=== PATIENT | male | born 1960 | race Caucasian/White ===

== ENCOUNTER 2021-07-04 13:56 | Outpatient (CLI) | payer BC, SELFPAY ==
--- NOTE | 2021-07-04 14:00 | ECG_ITS ---
Measurements Intervals Solo Rate: 66 P: 41 IN: 188 QRS: -22 QRSD: 91 T: 0 QT: 376 QTc: 394 Interpretive Statements SINUS RHYTHM LOW QRS VOLTAGE IN PRECORDIAL LEADS BORDERLINE T WAVE ABNORMALITY- INFERIOR LEADS BASELINE ARTIFACT- I, II, III, AVR, AVL, AVF BORDERLINE ECG Electronically Signed On 07-04-2021 14:18:32 DIVERSITY SPECIALIST by Ivan Christensen D.O.
[2021-07-04 14:34] LABS: Anion Gap 4 mmol/L (8-16); Blood Urea Nitrogen 23 mg/dL (9-20); Calcium 9.1 mg/dL (8.4-10.2); Carbon Dioxide 30 mmol/L (22-30); Chloride 104 mmol/L (98-107); Estimated Glomerular Filt Rate 45; Glucose 90 mg/dL (65-110); Potassium 4.3 mmol/L (3.4-5.0); Sodium 138 mmol/L (137-145)
[2021-07-04 14:36] LABS: Add Urine Microscopic? YES; Appearance Urine Clear (Clear); Bilirubin Urine Negative (Negative); Blood Urine 3+ (Negative); Color Urine Yellow (Yellow); Glucose Urine UA Negative (Negative); Ketones Urine Negative (Negative); Leukocyte Esterase Ur Negative LEU/UL (Negative); Mucus Urine Rare /lpf; Nitrate Urine Negative (Negative); Protein Urine Negative (Negative); RBC Urine 51-75 /hpf (0-2); Specific Grav Ur 1.017 (1.001-1.035); Urobilinogen Urine Negative mg/dL (<2.0); WBC Urine 0-3 /hpf
[2021-07-04 14:36] LABS: Prothrombin Time 13.3 Seconds (11.1-14.7)
[2021-07-04 14:37] LABS: Partial Thromboplastin Time 27.6 SECONDS (22.3-36.8)
== END 2021-07-04 13:57 | disposition home or self-care (01) ==
LOC: ANHSURGERY 13:59
PROVIDERS: Anesthesiology; PCP Internal Medicine; Visit Provider Urology
DX: E78.00 Pure hypercholesterolemia, unspecified (principal); N20.1 Calculus of ureter; Z51.81 Encounter for therapeutic drug level monitoring; Z01.818 Encounter for other preprocedural examination; R94.31 Abnormal electrocardiogram [ECG] [EKG]
CPT/HCPCS: 36415; 80048; 81001; 85610; 85730; 93005

== ENCOUNTER 2021-07-05 01:24 | Day surgery (SDC) | payer BC, SELFPAY ==
[2021-07-04 09:22] VITALS: BMI 35.9
--- NOTE | 2021-07-04 10:38 | PC.NURSE ---
Report to the Outpatient Waiting Room, entrance under the green pavilion located off [facility], at time _1:00 PM on date __07/05/21 . OR Time: __3:00PM . - You and your visitor will be asked a series of questions to screen for COVID 19 for your protection. - A mask is required within the hospital. - Only one visitor is allowed at this time. Patient visitors will be guided where to wait when not with patient. Preoperative COVID Testing Requirements: No COVID Test needed if: (proof is required; if not received patient will have Rapid Test prior to entry) - Patient has received COVID Vaccine at least 14 days prior to procedure date or - Patient has positive COVID test result within last 90 days of surgery date. COVID Test needed if above criteria is not met If not COVID vaccinated a COVID test must be conducted within 72 hours of surgery and patient is asked to isolate self from time of testing until procedure. You will go to the [facility] for your COVID testing. The [facility] is located at the corner of [address] [facility]. You will only be called if COVID results are positive and your surgeon may reschedule your elective surgery date. Patients may have clear liquids (water, carbonated beverages, clear teas, apple juice) until 3 hours prior to surgery with a maximum of 20 ounces. - No food from midnight until time of surgery - Infants may have breast milk until 4 hours before surgery, infant formula 6 hours prior to surgery. - Children will be allowed to drink immediately following surgery. If applicable, please bring a bottle or sippy cup to assist with drinking. Juice, water, soda, and popsicles are readily available. For infants on formula, please bring formula the day of surgery. Pacifiers are allowed. Take the following medications with a SIP of water the morning of surgery: ____LEVOTHYROXINE, HYDROCODONE NEEDED Medications to discontinue per physician HOLD ALL VITAMINS/SUPPLEMENTS STARTING NOW Date to take last dose__07/04/21 Please no make-up, nail brazilian, hairspray, perfume, deodorant, or body powder the day of surgery. No jewelry (including any body piercings) or valuables the day of surgery, leave them at home. Please take a shower or bath the night before, or the morning of, surgery with an antibacterial soap. Wear comfortable, loose fitting clothing. Children are encouraged to wear pajamas. - Jewelry must be removed prior to entering the operating room. Rings and piercings that are not removed may be cut off. - The hospital will not accept responsibility for valuables. - Please leave all valuables, including medications, at home the day of surgery. If you are going home after surgery, a licensed local hazmat driver must drive you home. - NO public transportation without another adult. - We recommend that an adult stay with you for 24 hours following discharge. - We also recommend that you do not drive, make important decision, drink alcoholic beverages, or take any drugs that were not prescribed by your health care provider for at least 24 hours after your discharge time. For Pediatric surgeries, we recommend two adults accompany the child home (only one inside the building at this time). Follow any additional instructions given to you from your surgeon. Telephone instructions given to ___PATIENT and asked if any additional questions and then verbalized understanding. Patient advised to call surgeon office or pre surgery nurse liaison [phone] if any additional questions.
[2021-07-05] VITALS (7 sets, daily range): BP systolic 99–145; BP diastolic 65–79; PULSE 52–73; RESP 13–18; TEMP 36.1–36.6; O2SAT 97–100
--- NOTE | ~2021-07-05 | XR_ITS ---
EXAMINATION: XR abdomen/kub 1V EXAM DATE: 07/05/2021 08:46 INDICATION: Right ureteral stone. TECHNIQUE: Frontal projection of the upper abdomen, frontal projection lower abdomen/pelvis for inter pretation. Correlation is made to abdomen pelvis CT same day. FINDINGS: Right proximal ureteral 4 mm stone projects along the right L4 transverse process, has bee n indicated. The smaller nephrolithiasis is poorly visualized bilaterally. There is moderate amount o f colonic stool and gas. No small bowel obstruction. Mild to moderate bony degenerative changes. IMPRESSION: 1. Right proximal ureteral stone identified. Reviewed, dictated and finalized at location D. PLES MACHINE OPERATOR
--- NOTE | ~2021-07-05 | CT_ITS ---
EXAMINATION: CT abdomen pelvis wo con EXAM DATE: 07/05/2021 09:03 INDICATION: Right ureteral stone . TECHNIQUE: Spiral CT of the abdomen and pelvis was performed without contrast. Axial, coronal and sag ittal images were reviewed. The dose-length product (DLP) for this examination was 1402.24 mGy-cm. The exposure was tailored according to patient size (auto mA exposure control), and iterative reconst ruction (ASIR) was used as additional dose reduction technique. There is no prior study for comparis on. FINDINGS: Mild prostatomegaly. Some diffuse bladder wall thickening, could indicate chronic cystitis . Acute cystitis not excludable. Several liver and renal cysts. Spleen, pancreas and adrenal glands are unremarkable. There is a 4 mm stone in the proximal aspect of the right ureter with mild right-sided hydronephrosis . This is at the right L4 transverse process level for KUB correlation, likely identified, indicated on that exam. There is additional punctate right mid calyceal stone. There are 3 left calyceal stones measuring up to 2.5 mm in size. No left ureteral stones. Gallbladder is unremarkable. No biliary o bstruction. There is no retroperitoneal or pelvic lymphadenopathy. There is mild scattered arterio sclerotic disease. There is mesh, hernia repair deep to the umbilicus. The appendix is normal. There is mild sigmoid predominant colonic diverticulosis. There is no adjace nt inflammatory change to suggest diverticulitis. The stomach and small bowel are unremarkable. Ther e is expected amount of colonic stool. No free intraperitoneal gas. The heart is normal in size. There are no pericardial or pleural effusions. The lung bases are unremarkable. There are no osteo blastic or osteolytic lesions identified. IMPRESSION: 1. Right proximal ureteral 4 mm stone, mild hydronephrosis. KUB positive. 2. Bilateral nephrolithiasis. 3. Mild colonic diverticulosis. Reviewed, dictated and finalized at location D. WORKER
--- NOTE | 2021-07-05 06:47 | WPDHPUPDATE1 ---
History and Physical Update Update Date/Time: 07/05/21 06:47 History and Physical has been reviewed, including an updated exam of the patient. There are NO changes in the patient's condition. Risks, benefits, and alternatives have been discussed and questions answered. Patient agrees to proceed with procedure.
--- NOTE | 2021-07-05 09:15 | SUR.PREOP ---
[address] scan for ct of abdomen,dr leggett states okay to proceed with procedure
[2021-07-05] MEDS: LACTATED RINGERS 1,000 ML 30 ML IV CONT (09:26)
--- NOTE | 2021-07-05 09:30 | WPDANESEPP ---
Anes - Eval Pre Procedure Procedure: Operation Date: 07/05/21 15:00 Proposed Procedures p Right Ureteral Extracorporeal Shock Wave Lithotripsy - Gato Da Silva MD Date/Time: 07/05/21 09:30 Pre Op Diagnosis: right ureteral stone Patient Data Age: 60 Gender: M Height: 1.83 m Weight: 120 kg Allergies Allergy/AdvReac Type Severity Reaction Status Date / Time thiopental AdvReac Mild Vomiting Verified 07/05/21 09:17 Home Medications Medication Instructions Recorded Confirmed Type atorvastatin 20 mg PO HS 07/04/21 07/05/21 History cholecalciferol (vitamin D3) 25 mcg PO DAILY 07/04/21 07/05/21 History docusate sodium [Stool Softener] 100 mg PO DAILY PRN 07/04/21 07/05/21 History ergocalciferol (vitamin D2) 1,250 mcg PO WEEKLY 07/04/21 07/05/21 History finasteride 5 mg PO QAM 07/04/21 07/05/21 History furosemide 20 mg PO QAM PRN 07/04/21 07/05/21 History hydrocodone-acetaminophen 1 tablet PO Q4-6H PRN 07/04/21 07/05/21 History levothyroxine 250 mcg PO QAM 07/04/21 07/05/21 History omega 8-[id number]-jnw-fish oil [Fish Oil] 1 cap PO DAILY 07/04/21 07/05/21 History tamsulosin 0.4 mg PO DAILY 07/04/21 07/05/21 History Patient hx anesthesia problems: none Family hx anesthesia problems: none Results Review: All pre-operative results and documents have been reviewed as part of the pre-operative evaluation. [facility] Past Medical History Medical History (Updated 07/05/21 @ 09:31 by Tara Jesus CRNA) BPH (benign prostatic hyperplasia) Chronic back pain CML (chronic myelocytic leukemia) GERD (gastroesophageal reflux disease) Hyperlipidemia Hypothyroid TERESA (obstructive sleep apnea) Family History Family History (Updated 04/26/15 @ 12:53 by DOCTOR UNKNOWN) Other Diabetes mellitus Family history of malignant neoplasm Social History Social History Smoking packs per day: 1.5 Smoking cigarettes per day: 30.0 Years smoked: 6 Smoking pack-years: 9.00 Smoking status: Former smoker Tobacco type: cigarettes Smoking end date: 07/20/92 Alcohol intake: current Substance use: never Living arrangements: with family Additional living arrangements comments: SPOUSE Spiritual care concerns: No Exam Day of Procedure 07/05/21 09:30
--- NOTE | 2021-07-05 09:32 | WPDANESEFPP ---
Anes - Eval Final PreProcedure Day of Procedure 07/05/21 09:32 Patient weight: obese Heart: regular rate and rhythm Lungs: clear to auscultation Airway: Mallampati scale class III Neurological: alert and oriented Last oral intake: >/= 8 hours ASA classification: III Emergent: no Anesthetic plan: proceed Anesthesia type and monitoring: general LMA and standard monitoring Results Review: All pre-operative results and documents have been reviewed as part of the pre-operative evaluation. Informed Consent: The patient's anesthetic plan and its attendant risks and benefits were discussed with the patient/family/POA. Questions were solicited and answers provided to the satisfaction of the patient/family/POA.
[2021-07-05] MEDS: ceFAZolin SODIUM 1 GM VIAL IV PUSH (09:40)
[2021-07-05] MEDS: ceFAZolin 2 GM/D5W 50 ML 2 GM/50 ML BAG IVPB (09:40)
[2021-07-05] MEDS: KETOROLAC 30 MG/ML VIAL (*BKC) IV PUSH (09:52)
--- NOTE | 2021-07-05 09:58 | W.PM.PROC2 ---
Procedure Note - Detailed Date of Procedure 07/05/21 Pre-op Diagnosis Right ureteral stone Post-op Diagnosis same Procedure Performed Right ESWL Surgeon Gato Da Silva MD Anesthesia general Description of Procedure The patient was brought to the operative suite where he was placed in the supine position on the Dornier lithotripsy table. The focal point of the lithotripter was placed at a 5mm right mid-ureteral calculus. A total of 3000 shocks were delivered at a power setting of 6. There appeared to be good fragmentation of the stone. The patient tolerated the procedure well and was taken to the recovery room in good condition. Estimated Blood Loss 0 Drains No Packing No Pathology none sent Complications No immediate complications Condition stable Disposition PACU
== END 2021-07-05 12:13 | disposition home or self-care (01) ==
PROVIDERS: PCP Internal Medicine; Visit Provider Urology
PROC: (CPT 50590; principal; 2021-07-05 15:00)
DX: N20.1 Calculus of ureter (principal); E78.5 Hyperlipidemia, unspecified; E03.9 Hypothyroidism, unspecified; N40.0 Benign prostatic hyperplasia without lower urinary tract symptoms; C92.10 Chronic myeloid leukemia, BCR/ABL-positive, not having achieved remission; G47.33 Obstructive sleep apnea (adult) (pediatric); K21.9 Gastro-esophageal reflux disease without esophagitis; M54.9 Dorsalgia, unspecified; G89.29 Other chronic pain; Z79.891 Long term (current) use of opiate analgesic; Z87.891 Personal history of nicotine dependence; E66.9 Obesity, unspecified; Z68.35 Body mass index [BMI] 35.0-35.9, adult
CPT/HCPCS: 50590; 36415; 74018; 74176; 80048; 81001; 85610; 85730; 93005; J0690; J1100; J1885; J2250; J2405; J2704; J3010; J7120

== ENCOUNTER 2021-07-15 14:56 | Outpatient (CLI) | payer BC, SELFPAY ==
--- NOTE | ~2021-07-15 | XR_ITS ---
XR abdomen/kub 1V DATE: 07/15/2021 15:08 INDICATION: Right ureteral calculus TECHNIQUE: AP projection, 2 views COMPARISON: 07/05/[address] abdomen pelvis FINDINGS: Very small calcified calculus of the lower pole left kidney is noted. There are couple of a dditional small left renal calculi and one right renal calculus detected on 07/05/[address] abdomen pelvis examination. No obvious calcified ureteral calculus is noted. Noncontrast CT abdomen pelvis examination would be m ore sensitive for detection of urinary tract stones. The psoas shadows are intact. No visceromegaly is evident. The bowel gas pattern is unremarkable, wit hout evidence of obstruction. Included skeletal structures are unremarkable. IMPRESSION: Bilateral nephrolithiasis Reviewed, dictated and finalized at Location A. Reviewed, dictated and finalized at location A. K REPAIR SUPERVISOR IMPRESSION: Bilateral nephrolithiasis
== END 2021-07-15 14:57 | disposition home or self-care (01) ==
LOC: ANHIMG 15:00
PROVIDERS: PCP Internal Medicine; Visit Provider Urology
DX: N20.0 Calculus of kidney (principal)
CPT/HCPCS: 74018

== ENCOUNTER 2022-09-05 12:19 | Emergency (ER) | payer BC, SELFPAY ==
[2022-09-05 12:31] VITALS: BP 162/74; PULSE 102; RESP 18; TEMP 36.8; O2SAT 98
--- NOTE | 2022-09-05 12:37 | ED.BACK ---
HPI - Back Pain/Injury General Chief Complaint: Back Pain/Injury Stated Complaint: back pain, Time Seen by Provider: 09/05/22 12:37 Source: patient, family, RN notes reviewed and old records reviewed Mode of arrival: ambulatory Limitations: no limitations History of Present Illness HPI Narrative: 61-year-old male presents to the [facility] with complaints of lower back pain. Has history of lower back pain, has been seen by primary. patient reports that he has a history of chronic back pain an attic occasionally acts up. Patient denies any loss retention or bladder bladder. denies midline tenderness. Denies any injury. Denies any saddle anesthesia walks with a normal gait. MD elicited complaint: back pain Onset (ago): day(s) () Related Data Home Medications Medication Instructions Recorded Confirmed finasteride 5 mg tablet 5 mg PO QAM 07/04/21 09/05/22 levothyroxine 125 mcg tablet 250 mcg PO QAM 07/04/21 09/05/22 dasatinib 50 mg tablet (Sprycel) 50 mg PO DAILY 07/18/22 09/05/22 Allergies Allergy/AdvReac Type Severity Reaction Status Date / Time thiopental AdvReac Mild Vomiting Verified 09/05/22 12:33 Review of Systems Review of Systems: All systems reviewed & are unremarkable except as noted in HPI and below Constitutional: Constitutional: Reports no additional constitutional complaints and Denies weakness Eyes: Eyes: Reports no additional eye complaints ENT: Reports system reviewed and no additional complaints, except as documented Cardiovascular: Cardiovascular: Reports no additional cardiovascular complaints and Denies chest pain Respiratory: Respiratory: Reports no additional respiratory complaints Gastrointestinal: Gastrointestinal: Reports no additional gastrointestinal complaints and Denies abdominal pain Genitourinary: Genitourinary: Reports no additional male genitourinary complaints, Denies urinary incontinence and Denies urinary urgency Musculoskeletal: Musculoskeletal: Reports as per HPI, Reports back pain and Denies numbness Integumentary/Breasts: Skin/Breast: Reports system reviewed and no additional complaints, except as docu Neurologic: Reports system reviewed and no additional complaints, except as documented, Denies focal weakness, Denies numbness and Denies weakness Psychiatric: Psychiatric: Reports no additional psychiatric complaints Allergic/Immunologic: Allergic/Immunologic: Reports no additional allergic/immunologic complaints PMFSH Past Medical History Medical History BPH (benign prostatic hyperplasia) Chronic back pain CML (chronic myelocytic leukemia) GERD (gastroesophageal reflux disease) Hyperlipidemia Hypothyroid TERESA (obstructive sleep apnea) Family History Family History Other Diabetes mellitus Family history of malignant neoplasm Social History Social History Smoking packs per day: 1.5 Smoking cigarettes per day: 30.0 Years smoked: 6 Smoking pack-years: 9.00 Smoking status: Former smoker Tobacco type: cigarettes Smoking end date: 07/20/92 Alcohol intake: current Substance use: never Substance use type: does not use Lack of Transportation: No Lack of Food: Never True Current Housing: I Have Housing Concerned About Future Housing: No Difficulty Paying Gas/Electric Bills: No Difficulty Paying for Meds: No Currently Unemployed: No Education: Bachelor's Degree Difficulty w/ Childcare or Family Care: No Living arrangements: with family Additional living arrangements comments: SPOUSE Occupation/Education: occupation Gender identity (if verbalized by the patient): Male Sexual Orientation (if Verbalized by the Patient): Straight or Heterosexual Spiritual care concerns: No Comments At the time of my signature, I reviewed and agree with the
[2022-09-05] MEDS: KETOROLAC (*BKC) 60 MG/2 ML VIAL IM (12:57)
== END 2022-09-05 13:14 | disposition home or self-care (01) ==
PROVIDERS: Emergency Provider Nurse Practitioner; PCP Internal Medicine
DX: M54.50 Low back pain, unspecified (principal); Z87.891 Personal history of nicotine dependence; N40.0 Benign prostatic hyperplasia without lower urinary tract symptoms; K21.9 Gastro-esophageal reflux disease without esophagitis; E78.5 Hyperlipidemia, unspecified; E03.9 Hypothyroidism, unspecified; C93.11 Chronic myelomonocytic leukemia, in remission
CPT/HCPCS: 96372; 99213; G0463; J1885

== ENCOUNTER → 2023-05-27 12:42 | Outpatient (CLI) | payer BC, SELFPAY ==
--- NOTE | ~2023-05-27 | MR_ITS ---
MRI of the right knee Clinical history: Pain Technique: Coronal proton density and proton density-weighted images, sagittal proton-density and T2 fat-sat images, and axial proton-density fat-saturated images were acquired. Findings: Anterior and posterior cruciate ligaments are intact. Medial collateral ligament and the la teral collateral ligament complex are intact. Popliteus tendon is intact. There are probable peripheral corner tear of the posterior horn of the medial meniscus. No lateral me niscal tear evident. There is extensive high-grade chondromalacia of the medial compartment. Lateral compartment articular cartilage is well preserved. There is focal high-grade chondral malacia at the superior patellar ape x. Femoral trochlear cartilage is well preserved. Small tricompartmental osteophytes are present. Extensor mechanism is intact. There is small joint effusion. No Pardo's cyst. Impression: Probable peripheral corner tear of the posterior horn of the medial meniscus. 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 Moderate degenerative change of the medial compartment. Mild degenerative change of the lateral and p atellofemoral compartment. Reviewed, dictated and finalized at location M. ER TAR Impression: Probable peripheral corner tear of the posterior horn of the medial meniscus. 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 Moderate degenerative change of the medial compartment. Mild degenerative guzmán e of the lateral and patellofemoral compartment.
== END ==
PROVIDERS: PCP Physician Assistant Medical; Visit Provider Physician Assistant Medical
DX: M94.261 Chondromalacia, right knee (principal); M17.11 Unilateral primary osteoarthritis, right knee
CPT/HCPCS: 73721

== ENCOUNTER 2024-01-23 10:19 | Emergency (ER) | payer BC, SELFPAY ==
--- NOTE | 2024-01-23 10:26 | ED.BACK ---
HPI - Back Pain/Injury General Chief Complaint: Back Pain/Injury Stated Complaint: back spasms Source: patient Mode of arrival: ambulatory Limitations: no limitations History of Present Illness HPI Narrative: 63-year-old male with chronic back pain presented for complaint of right lower back spasms for about 1 week. He states he may have overused it by working in the yard. Pain is 3/10 at rest, 6/10 with walking or movements. Reports occasional acute flares of back pain for which he gets toradol, Medrol pack and continues robaxin. Denies pain radiating into the hips or legs, increase in numbness, tingling, weakness of the lower extremities, or change in gait, saddle paresthesia or loss of bowel or bladder. Hx L4-5 laminectomy 1987 and reports chronic residual numbness to legs. Taking Robaxin and Aleve for symptoms. Related Data Home Medications Medication Instructions Recorded Confirmed finasteride 5 mg tablet 5 mg PO QAM 07/04/21 01/23/24 levothyroxine 125 mcg tablet 250 mcg PO QAM 07/04/21 01/23/24 dasatinib 50 mg tablet (Sprycel) 50 mg PO DAILY 07/18/22 01/23/24 cholecalciferol (vitamin D3) 25 25 mcg PO DAILY 04/15/23 01/23/24 mcg (1,000 unit) capsule baclofen 10 mg tablet 10 mg PO TID muscle pain 01/23/24 01/23/24 meloxicam 15 mg tablet mg 01/23/24 methocarbamol 500 mg tablet 500 mg PO TID 01/23/24 01/23/24 Allergies Allergy/AdvReac Type Severity Reaction Status Date / Time thiopental AdvReac Mild Vomiting Verified 01/23/24 10:28 Review of Systems Review of Systems: CONSTITUTIONAL: Denies body aches, fever, chills EYES: Denies visual changes CARDIOVASCULAR: Denies chest pain, palpitations, or edema. RESPIRATORY: Denies cough or dyspnea. GASTROINTESTINAL: Denies abdominal pain, nausea, vomiting, or diarrhea. SKIN: Denies rash, itching, or wounds. 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 Vitamin D deficiency Surgical History Surgical History History of elbow surgery History of laminectomy History of thyroidectomy Hx of cataract surgery Hx of umbilical hernia repair Family History Family History Mother Breast cancer Father Diabetes mellitus Grandparent Breast cancer Carcinoma of colon Diabetes mellitus Other Family history of malignant neoplasm Social History Social History Smoking packs per day: 1.5 Smoking cigarettes per day: 30.0 Years smoked: 6 Smoking pack-years: 9.00 Smoking status: Former smoker Tobacco type: cigarettes Smoking end date: 07/20/92 Alcohol intake: current Alcohol use details: rarely Substance use: never Substance use type: does not use Lack of Transportation: No Lack of Food: Never True Current Housing: I Have Housing Concerned About Future Housing: No Difficulty Paying Gas/Electric Bills: No Difficulty Paying for Meds: No Currently Unemployed: No Education: Bachelor's Degree Difficulty w/ Childcare or Family Care: No Living arrangements: with family Additional living arrangements comments: SPOUSE Occupation/Education: occupation Additional occupation/education comments: [employer] Gender identity (if verbalized by the patient): Male Sexual Orientation (if Verbalized by the Patient): Straight or Heterosexual Spiritual care concerns: No Comments At time of
[2024-01-23 10:27] VITALS: BP 147/71; PULSE 90; RESP 18; TEMP 36.6; O2SAT 98
[2024-01-23 10:29] VITALS: BP 147/71; PULSE 90; RESP 18; TEMP 36.6; O2SAT 98
[2024-01-23] MEDS: KETOROLAC (*BKC) 60 MG/2 ML VIAL IM (10:42)
== END 2024-01-23 11:01 | disposition home or self-care (01) ==
PROVIDERS: Emergency Provider Nurse Practitioner Family; PCP Physician Assistant Medical
DX: M54.50 Low back pain, unspecified (principal); Z87.891 Personal history of nicotine dependence; N40.0 Benign prostatic hyperplasia without lower urinary tract symptoms; K21.9 Gastro-esophageal reflux disease without esophagitis; E78.5 Hyperlipidemia, unspecified; E89.0 Postprocedural hypothyroidism; C92.10 Chronic myeloid leukemia, BCR/ABL-positive, not having achieved remission; Z85.850 Personal history of malignant neoplasm of thyroid
CPT/HCPCS: 96372; 99213; G0463; J1885

== ENCOUNTER 2024-04-28 16:37 | Outpatient (CLI) | payer BC, SELFPAY ==
[2024-04-28 17:08] LABS: Hematocrit 49.1 % (42.0-52.0); Hemoglobin 16.6 g/dL (14.0-18.0)
[2024-04-28 17:19] LABS: Prothrombin Time 13.7 Seconds (11.1-14.7)
== END 2024-04-28 16:38 | disposition home or self-care (01) ==
PROVIDERS: Anesthesiology; PCP Physician Assistant Medical; Visit Provider Urology
DX: N20.0 Calculus of kidney (principal); C92.10 Chronic myeloid leukemia, BCR/ABL-positive, not having achieved remission; Z01.818 Encounter for other preprocedural examination
CPT/HCPCS: 36415; 85014; 85018; 85610; 85730; 87086

== ENCOUNTER 2024-05-06 00:12 | Day surgery (SDC) | payer BC, SELFPAY ==
--- NOTE | 2024-04-22 10:25 | PM.HPGS ---
History of Present Illness History of Present Illness Consent: Risks, benefits, and alternatives have been discussed and questions answered. Patient agrees to proceed with procedure. Chief complaint: left kidney stone Narrative: Adriano Vale is a 63 year old male was noted to have kidney stones in the past. Recent surveillance imaging with KUB revealed 2 stones in his left kidney, up to 6 mm. This imaging was done at [facility]. Patient is mildly symptomatic and opting for left ESWL included, not limited to, adverse cardiopulmonary events, hematuria. Review of Systems Cardiovascular: Cardiovascular: Denies chest pain, Denies lightheadedness, Denies palpitations and Denies dyspnea Respiratory: Respiratory: Denies dyspnea Gastrointestinal: Gastrointestinal: Denies diarrhea, Denies nausea and Denies vomiting Genitourinary: Genitourinary: Denies hematuria and Denies dysuria Endocrine: Endocrine: Denies palpitations PMFSH Past Medical History Medical History BPH (benign prostatic hyperplasia) Chronic back pain CML (chronic myelocytic leukemia) Double vision (~01/2022) chronic decompensated esotropia GERD (gastroesophageal reflux disease) Hyperlipidemia Hypothyroid TERESA (obstructive sleep apnea) 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 Vitamin D deficiency Surgical History Surgical History History of elbow surgery History of laminectomy History of thyroidectomy Hx of cataract surgery Hx of umbilical hernia repair Family History Family History Mother Breast cancer Father Diabetes mellitus Grandparent Breast cancer Carcinoma of colon Diabetes mellitus Other Family history of malignant neoplasm Social History Social History Smoking packs per day: 1.5 Smoking cigarettes per day: 30.0 Years smoked: 6 Smoking pack-years: 9.00 Smoking status: Former smoker Tobacco type: cigarettes Smoking end date: 07/20/92 Alcohol intake: current Alcohol use details: rarely Substance use: never Substance use type: does not use Lack of Transportation: No Lack of Food: Never True Current Housing: I Have Housing Concerned About Future Housing: No Difficulty Paying Gas/Electric Bills: No Difficulty Paying for Meds: No Currently Unemployed: No Education: Bachelor's Degree Difficulty w/ Childcare or Family Care: No Living arrangements: with family Additional living arrangements comments: SPOUSE Occupation/Education: occupation Additional occupation/education comments: [employer] Gender identity (if verbalized by the patient): Male Sexual Orientation (if Verbalized by the Patient): Straight or Heterosexual Spiritual care concerns: No Meds Home Medications and Allergies Home Medications Medication Instructions Recorded Confirmed Type finasteride 5 mg tablet 5 mg PO QAM 07/04/21 01/23/24 History levothyroxine 125 mcg tablet 250 mcg PO QAM 07/04/21 01/23/24 History dasatinib 50 mg tablet (Sprycel) 50 mg PO DAILY 07/18/22 01/23/24 History cholecalciferol (vitamin D3) 25 25 mcg PO DAILY 04/15/23 01/23/24 History mcg (1,000 unit) capsule baclofen 10 mg tablet 10 mg PO TID muscle pain 01/23/24 01/23/24 History meloxicam 15 mg tablet mg 01/23/24 History methocarbamol 500 mg tablet 500 mg PO TID 01/23/24 01/23/24 History methocarbamol 500 mg tablet 500 mg PO TID #14 tabs 01/23/24 Rx methylprednisolone 4 mg tablets in See Rx Instructions PO .COMPLEX 01/23/24 Rx a dose pack (Medrol (Ok)) #21 ea ergocalciferol (vitamin D2) 1,250 See Rx Instructions .Route 03/02/24 Rx mcg (50,000 unit) capsule .COMPLEX #13 caps atorvastatin 20 mg tablet 20 mg PO QHS #90 tabs 04/05/24 Rx Allergies Allergy/AdvReac Type Sev
[2024-04-25 14:47] VITALS: BMI 34.4
--- NOTE | 2024-04-25 15:34 | PC.NURSE ---
AN ORDER FOR LABS, URINE, AND EKG ARE BEING SENT TO [facility] Report to the Outpatient Waiting Room, entrance under the green pavilion located off [facility], at time _0600_ on date _ FRI 05/06/24 . Planned Procedure Time: _0730 .? Time changes happen often and if your time is changed the preop area will call you the afternoon before. - You and your visitor will be asked to self-screen and do not enter if you have any COVID symptoms. Please call surgeon if you need to reschedule. - A mask is optional within the hospital at this time. Patients may have clear liquids (water, carbonated beverages, clear teas, apple juice) until 3 hours prior to surgery with a maximum of 20 ounces. - No food from midnight until time of surgery and no smoking - - Take only the following medications with a SIP of water on the morning of surgery: _SPRYCEL, LEVOTHYROXINE DO NOT STOP ANY OF YOUR OTHER PRESCRIPTION MEDICATIONS PRIOR TO SURGERY EXCEPT THE FOLLOWING Medications to discontinue per physician FELISA-HOLD YOUR 05/03/24 DOSE Date to take last dose Please no make-up, nail estonian, hairspray, perfume, deodorant, or body powder the day of surgery.? No jewelry (including any body piercings) or valuables the day of surgery, leave them at home.? Please take a shower or bath the night before, or the morning of, surgery with an antibacterial soap.? Wear comfortable, loose fitting clothing.? - Jewelry must be removed prior to entering the operating room.? Rings and piercings that are not removed may be cut off. - The hospital will not accept responsibility for valuables.? - Please leave all valuables, including medications, at home the day of surgery. If you are going home after surgery, a licensed cattle driver must drive you home.? - NO public transportation without another adult if you receive anesthesia. - We recommend that an adult stay with you for 24 hours following discharge. - We also recommend that you do not drive, make important decision, drink alcoholic beverages, or take any drugs that were not prescribed by your health care provider for at least 24 hours after your discharge time. Follow any additional instructions given to you from your surgeon. Telephone instructions given to and asked if any additional questions and then verbalized understanding. Patient advised to call surgeon office or pre surgery nurse liaison [phone] if any additional questions.
--- NOTE | 2024-05-05 16:56 | WPDANESEPP ---
Anes - Eval Pre Procedure Procedure: Operation Date: 05/06/24 07:30 Proposed Procedures p Left Extracorporeal Shock Wave Lithotripsy - Gato Da Silva MD Date/Time: 05/05/24 16:56 Pre Op Diagnosis: left kidney stone Patient Data Age: 63 Gender: M Height: 1.83 m Weight: 115 kg Allergies Allergy/AdvReac Type Severity Reaction Status Date / Time thiopental AdvReac Mild Vomiting Verified 01/23/24 10:28 Home Medications Medication Instructions Recorded Confirmed Type finasteride 5 mg tablet 5 mg PO QAM 07/04/21 04/25/24 History levothyroxine 125 mcg tablet 250 mcg PO QAM 07/04/21 04/25/24 History dasatinib 50 mg tablet (Sprycel) 20 mg PO DAILY 07/18/22 04/25/24 History cholecalciferol (vitamin D3) 25 25 mcg PO DAILY 04/15/23 04/25/24 History mcg (1,000 unit) capsule ergocalciferol (vitamin D2) 1,250 See Rx Instructions .Route 03/02/24 04/25/24 Rx mcg (50,000 unit) capsule .COMPLEX #13 caps atorvastatin 20 mg tablet 20 mg PO QHS #90 tabs 04/05/24 04/25/24 Rx methocarbamol 500 mg tablet 500 mg PO TID PRN Muscle Spasm 04/25/24 04/25/24 History semaglutide (weight loss) 2.4 2.4 mg subcut WEEKLY 04/25/24 04/25/24 History mg/0.75 mL subcutaneous pen injector (Wegovy) Patient hx anesthesia problems: none Family hx anesthesia problems: none Results Review: All pre-operative results and documents have been reviewed as part of the pre-operative evaluation. 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 Vitamin D deficiency Surgical History Surgical History History of elbow surgery History of laminectomy History of thyroidectomy Hx of cataract surgery Hx of umbilical hernia repair Family History Family History Mother Breast cancer Father Diabetes mellitus Grandparent Breast cancer Carcinoma of colon Diabetes mellitus Other Family history of malignant neoplasm Social History Social History Smoking packs per day: 1.5 Smoking cigarettes per day: 30.0 Years smoked: 6 Smoking pack-years: 9.00 Smoking status: Never smoker Tobacco type: cigarettes Smoking end date: 07/20/92 Alcohol intake: current Alcohol use details: rarely Substance use: never Substance use type: does not use Lack of Transportation: No Lack of Food: Never True Current Housing: I Have Housing Concerned About Future Housing: No Difficulty Paying Gas/Electric Bills: No Difficulty Paying for Meds: No Currently Unemployed: No Education: Bachelor's Degree Difficulty w/ Childcare or Family Care: No Living arrangements: with family Additional living arrangements comments: CPAP Occupation/Education: occupation Additional occupation/education comments: [employer] Gender identity (if verbalized by the patient): Male Sexual Orientation (if Verbalized by the Patient): Straight or Heterosexual Spiritual care concerns: No Comments SR VR 66 SINUS RHYTHM LOW QRS VOLTAGE IN PRECORDIAL LEADS BORDERLINE T WAVE ABNORMALITY- INFERIOR LEADS BASELINE ARTIFACT- I, II, III, AVR, AVL, AVF BORDERLINE ECG Exam Day of Procedure 05/05/24 16:56 Patient weight: obese
[2024-05-06] VITALS (9 sets, daily range): BP systolic 115–145; BP diastolic 72–86; PULSE 71–82; RESP 16–20; TEMP 36.6–37.1; O2SAT 97–100
--- NOTE | ~2024-05-06 | XR_ITS ---
XR abdomen/kub 1V 05/06/2024 07:00 Indication: Renal stones Procedure: KUB Comparison: 07/15/2021 Findings: There are left renal stones. Bowel gas pattern nonobstructive. Moderate colonic fecal loadi ng. No acute osseous abnormality. Impression: 1: Left nephrolithiasis. Reviewed, dictated and finalized at location B. Impression: 1: Left nephrolithiasis.
--- NOTE | 2024-05-06 06:38 | WPDHPUPDATE1 ---
History and Physical Update Update Date/Time: 05/06/24 06:38 History and Physical has been reviewed, including an updated exam of the patient. There are NO changes in the patient's condition. Risks, benefits, and alternatives have been discussed and questions answered. Patient agrees to proceed with procedure.
--- NOTE | 2024-05-06 06:40 | WPDANESEPPF ---
Anes - Initial Pre Proc Eval Procedure: Operation Date: 05/06/24 07:30 Proposed Procedures p Left Extracorporeal Shock Wave Lithotripsy - Gato Da Silva MD Date/Time: 05/06/24 06:40 Surgeon: Gato Da Silva MD Pre Op Diagnosis: left kidney stone Patient Data Age: 63 Gender: M Height: 1.83 m Weight: 115 kg Allergies Allergy/AdvReac Type Severity Reaction Status Date / Time thiopental AdvReac Mild Vomiting Verified 01/23/24 10:28 Home Medications Medication Instructions Recorded Confirmed Type finasteride 5 mg tablet 5 mg PO QAM 07/04/21 04/25/24 History levothyroxine 125 mcg tablet 250 mcg PO QAM 07/04/21 04/25/24 History dasatinib 50 mg tablet (Sprycel) 20 mg PO DAILY 07/18/22 04/25/24 History cholecalciferol (vitamin D3) 25 25 mcg PO DAILY 04/15/23 04/25/24 History mcg (1,000 unit) capsule ergocalciferol (vitamin D2) 1,250 See Rx Instructions .Route 03/02/24 04/25/24 Rx mcg (50,000 unit) capsule .COMPLEX #13 caps atorvastatin 20 mg tablet 20 mg PO QHS #90 tabs 04/05/24 04/25/24 Rx methocarbamol 500 mg tablet 500 mg PO TID PRN Muscle Spasm 04/25/24 04/25/24 History semaglutide (weight loss) 2.4 2.4 mg subcut WEEKLY 04/25/24 04/25/24 History mg/0.75 mL subcutaneous pen injector (Wegovy) Patient hx anesthesia problems: none Family hx anesthesia problems: none Results Review: All pre-operative results and documents have been reviewed as part of the pre-operative evaluation. 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 Vitamin D deficiency Surgical History Surgical History History of elbow surgery History of laminectomy History of thyroidectomy Hx of cataract surgery Hx of umbilical hernia repair Family History Family History Mother Breast cancer Father Diabetes mellitus Grandparent Breast cancer Carcinoma of colon Diabetes mellitus Other Family history of malignant neoplasm Social History Social History Smoking packs per day: 1.5 Smoking cigarettes per day: 30.0 Years smoked: 6 Smoking pack-years: 9.00 Smoking status: Never smoker Tobacco type: cigarettes Smoking end date: 07/20/92 Alcohol intake: current Alcohol use details: rarely Substance use: never Substance use type: does not use Lack of Transportation: No Lack of Food: Never True Current Housing: I Have Housing Concerned About Future Housing: No Difficulty Paying Gas/Electric Bills: No Difficulty Paying for Meds: No Currently Unemployed: No Education: Bachelor's Degree Difficulty w/ Childcare or Family Care: No Living arrangements: with family Additional living arrangements comments: CPAP Occupation/Education: occupation Additional occupation/education comments: [employer] Gender identity (if verbalized by the patient): Male Sexual Orientation (if Verbalized by the Patient): Straight or Heterosexual Spiritual care concerns: No Anes - Eval Final PreProcedure Day of Procedure 05/06/24 06:40 Patient weight: obese Heart: regular rate and rhythm Lungs: clear to auscultation Airway: Mallampati scale class III Neurological: alert and oriented Last oral intake: >/= 8 hours Emergent: no Anesthetic plan: proceed Anesthesia type and monitoring: general LMA and standard monitoring Results Review: All pre-operative results and documents have been reviewed as part of the pre-operative evaluation. Informed Consent:
--- NOTE | 2024-05-06 06:59 | ECG_ITS ---
Test Date: 2024-05-06 07:09:48 Measurements Intervals Ione Rate: 69 P: 39 AR: 187 QRS: -13 QRSD: 92 T: -2 QT: 370 QTc: 397 Interpretive Statements SINUS RHYTHM WITH SINUS ARRHYTHMIA No previous ECG available for comparison Electronically Signed On 05-06-2024 13:38:58 CDT by Angel Herzog M.D.
[2024-05-06] MEDS: LACTATED RINGERS 1,000 ML 30 ML IV CONT (07:32)
[2024-05-06] MEDS: ceFAZolin 2 GM/D5W 50 ML 2 GM/50 ML BAG IVPB (07:37)
--- NOTE | 2024-05-06 07:50 | W.PM.PROC2 ---
Procedure Note - Detailed Date of Procedure 05/06/24 Pre-op Diagnosis Left kidney stones Post-op Diagnosis Same Procedure Performed Left ESWL Surgeon Gato Da Silva MD Anesthesia General Description of Procedure The patient was brought to the operative suite where he was placed in the supine position on the Dornier lithotripsy table. The focal point of the Lithotripter was 1st placed at a 6 mm left renal calculus where 2000 shocks were delivered at a power setting of 4. We then delivered 500 shocks to a smaller stone in the upper pole calyx. A total of 2500 shocks were delivered at a power setting of 4. There appeared to be good fragmentation of the stones. The patient tolerated the procedure well and was taken to the recovery room in good condition.
== END 2024-05-06 10:10 | disposition home or self-care (01) ==
PROVIDERS: PCP Physician Assistant Medical; Visit Provider Urology
PROC: (CPT 50590; principal; 2024-05-06 07:30)
DX: N20.0 Calculus of kidney (principal); Z87.891 Personal history of nicotine dependence
CPT/HCPCS: 50590; 36415; 74018; 85014; 85018; 85610; 85730; 87086; 93005; J0690; J1100; J2405; J2704; J7120

== ENCOUNTER 2024-05-17 13:13 | Outpatient (CLI) | payer BC, SELFPAY ==
--- NOTE | ~2024-05-17 | XR_ITS ---
EXAMINATION: XR abdomen/kub 1V DATE: 05/17/2024 13:28 INDICATION: Calculus of kidney. TECHNIQUE: A supine view of the abdomen on 2 radiographs was obtained. COMPARISON: CT abdomen and pelvis 07/05/21, radiographs 05/06/2024 FINDINGS: There are no dilated loops of bowel. There are phleboliths in the pelvis. There are 2 stone s in left kidney measuring up to 4 mm. IMPRESSION: 1. Left kidney stones. Reviewed, dictated and finalized at location B. IMPRESSION: 1. Left kidney stones.
== END 2024-05-17 13:14 | disposition home or self-care (01) ==
PROVIDERS: PCP Physician Assistant Medical; Visit Provider Urology
DX: N20.0 Calculus of kidney (principal)
CPT/HCPCS: 74018

== ENCOUNTER 2024-10-21 00:57 | Day surgery (SDC) | payer BC, SELFPAY ==
[2024-10-10 14:15] VITALS: BMI 34.5
--- OUTSIDE RECORDS SUMMARY | 2024-10-21 01:00 | XMS_ITS | Clinical Summary ---
Author Organization [facility] Address [address], [facility] [address] [place] [address] Phone Care Team Providers Care Solid Waste Technician Name Role Phone Alfonzo Lee MD Primary Care Provider [phone] Allergies No known active allergies Medications levothyroxine (SYNTHROID) 112 MCG Tablet Take 224 mcg by mouth daily. 10/20/2017 Active aspirin EC 81 MG Tablet Delayed Response Take 81 mg by mouth daily. Active raNITIdine (ZANTAC) 150 MG Tablet Take 150 mg by mouth 2 times daily. Active FUROSEMIDE PO Take 20 mg by mouth. Active Multiple Vitamins-Mineral s (MULTIVITAMIN PO) Take by mouth. Active calcium carbonate (TUMS) 500 MG Chewable Tablet Take 1 Tab by mouth daily. 30 Tab 01/07/2018 Active Active Problems Patient Care Coordination No te Formatting of this note migh t be different from the original. [facility] Problem Noted Date Diagnosed Date CML (chronic myelocytic leukemia) 11/12/2017 Thrombocytosis 11/05/2017 Bandemia 11/05/2017 Family History Medical History Relation Name Comments Cancer Mother Cancer Paternal Grandmother Relation Name Status Comments Mother Paternal Grandmother Social History Tobacco Use Types Packs/Day Years Used Date Smoking Tobacco: Former Cigarettes Smokeless Tobacco: Never Alcohol Use Standard Drinks/Week Comments Yes 0 (1 standard drink = 0.6 oz pur e alcohol) rarre Sexually Active Control Partners Comments Yes Female Sex and Gender Information Value Date Recorded Sex Assigned at Not on file Legal Sex Male 8:57 AM CDT Gender Identity Not on file Sexual Orientation Not on file Last Filed Vital Signs Vital Sign Reading Time Taken Comments Blood Pressure 130/68 01/07/2018 8:19 AM CDT Pulse 87 01/07/2018 8:19 AM CDT Temperature 36.9 C (98.4 F) 01/07/2018 8:19 AM CDT Respiratory Rate 16 11/18/2017 3:27 PM CDT Oxygen Saturation 96% 01/07/2018 8:19 AM CDT Inhaled Oxygen Concentration - - Weight 115.7 kg (255 lb) 01/07/2018 8:19 AM CDT Height 182.9 cm (6') 12/10/2017 8:08 AM CDT Body Mass Index 34.58 12/10/2017 8:08 AM CDT Plan of Treatment Health Maintenance Due Date Last Done Comments Hepatitis C Virus (HCV) Screening 1960 TdaP Immunization 1962 SARS-COV-2 Immunization (#1) 12/26/1967 Pneumococcal Immunization (5 0+ years) (1 of 2 - PCV) 1981 Zoster Immunization (1 of 2) 1981 Colonoscopy 12/26/2007 Colorectal Cancer Screening 12/26/2007 Cologuard 2012 Immunochemical Fecal Occult Blood 2012 Respiratory Syncytial Virus (RSV) Immunization (Adult) (1 - Risk 60-74 years 1-dose series) 2022 Influenza Immunization (#1) 2024 04/11/2015 Hepatitis B Immunization Aged Out No longer eligible based on patient's age to complete this topic Meningococcal Immunization (ACWY) Aged Out No longer eligible based on patient's age to complete this topic Rotavirus Immunization Aged Out No lo nger eligible based on patient's age to complete this topic Insurance [facility] Care Teams Solid Waste Technician Relationship Specialty Start Date End Date Alfonzo Lee MD [address] [place] [id number] PCP - General Internal Medicine 11/05/17
--- OUTSIDE RECORDS SUMMARY | 2024-10-21 01:00 | XMS_ITS ---
Author Organization [facility] Address [address], [facility] [address] [place] [address] Phone Care Team Providers Care Junior Administrative Assistant Name Role Phone Alfonzo Lee MD Primary Care Provider [phone] Active Problems Patient Care Coordination No te Formatting of this note migh t be different from the original. Sprycel comes from [facility] Problem Noted Date Diagnosed Date CML (chronic myelocytic leukemia) 11/12/2017 Thrombocytosis 11/05/2017 Bandemia 11/05/2017 Current Treatment and Therapy Plans No current plan information found. Past Treatment and Therapy Plans ONCOLOGY TREATMENT Plan Name Start Date Discontinue Date Treatment Medications Discontinue Reason Plan Provider Cycles CML, CHRONIC/NEWLY DIAGNOSED - DASATINIB (SPRYCEL) - CCSCI 11/23/2017 09/13/2020 Dasatinib Plan Clean Up Adriano De Los Santos MD 1 of 1 cycle started
--- OUTSIDE RECORDS SUMMARY | 2024-10-21 01:00 | XMS_ITS ---
Author Organization [facility] Address [address] [place] [address] Care Team Providers Care Erp Pm Name Role Phone Ezequiel Baugh MD Unavailable [phone] Micheal Aleman MD Unavailable [phone] Lali Watt [address]TENANCE OF [address] CLERK Unavailable Dino Oleary OD Unavailable [phone] Maday Hagan Primary Care Provider [phone] Pete Coffman MD PhD Unavailable Amelia Corey DPT Unavailable [phone] Active Problems Problem Noted Date Diagnosed Date Class 2 severe obesity due t o excess calories with serious comorbidity and body mass index (BMI) of 36.0 to 36.9 in adult 08/04/2023 Prediabetes 08/04/2023 Acute medial meniscus tear of right knee 023 Diplopia 02/06/2022 Assessment & Plan (02/06/2022 5:08 PM CDT): - Hx of thyroid cancer status post (s/p) thyroidectomy and CML (recently restarted desatinib) - Several 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 Fundus exam unremarkable. - OCT rnfl and OCT mac normal OU; GCL normal OU - TSIG on 12/23/21 was normal - New onset binocular diplopia can have several etiologies including supranuclear, nuclear, and internuclear (ie eye muscle pathology, neuromuscular junction, cranioneuropathies) localization. Medications, including checkpoint inhibitors, can also cause diplopia In terms of the initial diagnostic approach we will obtain a MRI of brain and orbits with and without contrast, myasthenia panel, and TSIG. - Follow-up in neuro-ophthalmology clinic in 10 weeks for repeat strabismus evaluation Esotropia 02/06/2022 Ocular rosacea 10/15/2020 CML (chronic myeloid leukemia) 01/13/2018 Cancer Staging:Clinical stage from 11/16/2017: Bone marrow blast count (%): 0, Ph chromosome: Positive, Additional clonal changes: Absent - Signed by Ezequiel Baugh MD on 01/26/2018 Sensorineural hearing loss (SNHL) of both ears 1 Subjective tinnitus 04/23/2016 Hearing loss 04/08/2016 Pyogenic arthritis of elbow 07/03/2015 Osteomyelitis of upper extremity 07/03/2015 Olecranon bursitis 07/03/2015 Postoperative hypothyroidism 08/19/2011 Papillary carcinoma of thyroid 11/16/2010 Overview (10/29/2017): Description: Thyroid Cancer Current Treatment and Therapy Plans Dasatinib Daily - CML* Plan Start Date:04/25/2018 Plan Provider:Ezequiel Baugh MD Linked Problems CML (chronic myeloid leukemi a) (HCC) Treatment Medications Current Day (Day 1 , Cycle 6 - Planned for 02/13/2025) Next Day (Day 1, Cycle 7 - Planned for 06/05/2025) daSATinib (SPRYCEL) No medications scheduled. da SATinib (SPRYCEL) 100 mg tablet Past Treatment and Therapy Plans No past plan information found.
--- OUTSIDE RECORDS SUMMARY | 2024-10-21 01:00 | XMS_ITS | Clinical Summary ---
Author Organization [facility] Address [address] [place] [address] Care Team Providers Care Special Assemblies Supervisor Name Role Phone Ezequiel Baugh MD Unavailable [phone] Micheal Aleman MD Unavailable [phone] Lali Watt BLENDING MACHINE OPERATOR Unavailable Dino Oleary OD Unavailable [phone] Maday Hagan Primary Care Provider + [phone] Pete Coffman MD PhD Unavailable Amelia Corey DPT Unavailable [phone] Allergies No known active allergies Medications finasteride (PROSCAR) 5 mg tabletIndications: benign prostatic hyperplasia with lower urinary tract sx Take 1 tablet (5 mg total) by mouth shift stacker before breakfast 12 9 Active methocarbamoL (ROBAXIN) 500 mg tabletIndications: Muscle Spasm Take 1 tablet (500 mg total) by mouth as needed for muscle spasms 0 Active ergocalciferol (VITAMIN D) 50,000 unit capsuleIndications :Vitamin D Deficiency Take 1 capsule (50,000 Units total) by mouth once a week 1 Active cholecalciferol (VITAMIN D-3) 1,000 unit Take 1 tablet/capsul e (1,000 Units total) by mouth shift stacker before breakfast Active atorvastatin (LIPITOR) 20 mg tabletIndications: hyperlipidemia Take 1 tablet (20 mg total) by mouth nightly 2 Active betamethasone dipropionate (DEL-BETA) 0.05 % creamIndications:R siva and other nonspecific skin eruption Apply topically 2 (two) times a day as needed (Rash) 135 g 1 2 Active docusate sodium (COLACE) 100 mg capsuleIndications :constipation Take 1 capsule (100 mg total) by mouth 2 (two) times a day 14 capsule 4 Active diclofenac sodium (VOLTAREN) 1 % gel Apply topically daily as needed Active semaglutide (WEGOVY) 2.4 mg/0.75 mL auto-injectorIndic ations:Class 2 severe obesity due to excess calories with serious comorbidity and body mass index (BMI) of 36.0 to 36.9 in adult ([facility]) Inject 0.75 mL (2.4 mg total) under the skin every 7 days 3 mL 11 4 Active gabapentin (NEURONTIN) 300 mg capsule Start one tab at night and increase to two tabs at night after 3 day as tolerated 60 capsule 2 4 Active levothyroxine (Synthroid) 125 mcg tabletIndications: Postoperative hypothyroidism TAKE 2 TABLETS BY MOUTH DAILY FOR 6 DAYS PER WEEK. 150 tablet 3 5 Active daSATinib (SPRYCEL) 20 mg tabletIndications: CML (chronic myeloid leukemia) ([facility]) TAKE 1 TABLET BY MOUTH 1 TIME A DAY 30 tablet 11 5 Active tirzepatide, weight loss, (Zepbound) 5 mg/0.5 mL pen injectorIndication s:Class 2 severe obesity due to excess calories with serious comorbidity and body mass index (BMI) of 36.0 to 36.9 in adult ([facility]) Inject 0.5 mL (5 mg total) under the skin every 7 days For 4 weeks, then increase dose to 7.5mg weekly. Stop Wegovy 2 mL 5 Active tirzepatide, weight loss, (Zepbound) 7.5 mg/0.5 mL pen injectorIndication s:Class 2 severe obesity due to excess calories with serious comorbidity and body mass index (BMI) of 36.0 to 36.9 in adult ([facility]) Inject 0.5 mL (7.5 mg total) under the skin every 7 days For 4 weeks, then increase dose to 10mg weekly 2 mL 5 Active tirzepatide, weight loss, (Zepbound) 10 mg/0.5 mL pen injectorIndication s:Class 2 severe obesity due to excess calories with serious comorbidity and body mass index (BMI) of 36.0 to 36.9 in adult ([facility]) Inject 0.5 mL (10 mg total) under the skin every 7 days 2 mL 11 5 Active Active Problems Problem Noted Date Diagnosed Date [...] thyroid 11/16/2010 Overview (10/29/2017): Description: Thyroid Cancer Encounters Date Type Department Care Team Description 10/18/2024 Orders Only [facility] [address] [place] [phone] Shira Terry, ELO CML (chronic myeloid leukemia) (HCC) (Primary Dx) 10/17/2024 12:00 PM CDT Office Visit [facility] [address] [place] [phone] Lali Watt NP CML (chronic myeloid leukemia) (HCC) (Primary Dx) 10/17/2024 11:15 AM CDT Lab [facility] [address] [place] [address] [address] [place] [address] CML (chronic myeloid leukemia) (HCC) 10/17/2024 11:00 AM CDT Lab [facility] [address] [place] [phone] CML (chronic myeloid leukemia) ([facility]) 10/07/2024 Telephone [facility] [address] [place] [phone] Shira Terry RN 10/05/2024 Documentation [facility] Scheduling [address] [place] [address] Jailyn Morris CPhT 09/07/2024 11:20 AM TOOL CHASER Office Visit [facility]ocrinology Met[facility] Lipid [address] [facility] 13th [place] [address] [place] [id number] Chandni Alicia MD Postoperative hypothyroidism (Primary Dx); Class 2 severe obesity due to excess calories with serious comorbidity and body mass index (BMI) of 36.0 to 36.9 in adult (HCC); Papillary carcinoma of thyroid (HCC); Prediabetes 09/07/2024 10:50 AM TOOL CHASER Lab [facility] [address] [place] [address] Class 2 severe obesity due to excess calories with serious comorbidity and body mass index (BMI) of 36.0 to 36.9 in adult (HCC); Prediabetes; Papillary carcinoma of thyroid (HCC) 09/07/2024 Telephone [facility] Lip[facility] [address] [facility] [address]th [place] [address] [place] [address] Key Petersen RN Prior Auth; zepbound 7.5 mg; zepbound 5 mg 09/07/2024 Results Follow-Up [facility] Lipid [address] [facility] [address]th [place] [address] [place] [address] Chandni Alicia MD 08/02/2024 Documentation [facility] [address] [facility] Floor [address] [place] [address] Kellen Hodges CPhT Prior Auth (DASATINIB) 08/02/2024 Telephone [facility] [address] [facility] Floor 6 [place] [address] Ezequiel Baugh MD from Last 3 Months Immunizations Immunization Administration Dates Next Due COVID-19 mRNA ([place]zy [place]) 0.3 m L (30 mcg) vaccine (12 years and up) 09/18/2023 Influenza, Quadrivalent, Sandy l Culture-based MDCK, Antibiotic Free, Intramuscular 05/24/2018 Influenza, Quadrivalent, Spl it, Intramuscular 04/02/2019 Influenza, Quadrivalent, Spl it, Preservative Free, Intramuscular 03/17/2020,04/02/2019,04/11/2015 Influenza, Unspecified 04/19/2021 Moderna SARS-CoV-2 Monovalen t Vaccination (12+ YRS) 03/22/2021,10/26/2020,09/14/2020 Symptify Sars-Cov-2 Bivalent V accination (12+ YRS) 04/13/2023 RSV Vaccine, Pref, Recombina nt, Subunit, Adjuvanted, PF, IM (Arexvy) 09/18/2023 Surgical History Surgery Date Site/Laterality Comments COLONOSCOPY ELBOW DEBRIDEMENT 07/20/2014 - 07/19/2015 Left x4 THYROIDECTOMY 07/20/1999 - 07/19/2000 CATARACT EXTRACTION 07/20/2017 - 07/19/2018 Bilateral REFRACTIVE SURGERY 07/20/1992 - 07/19/1993 Bilateral DEBRIDEMENT ELBOW DEEP 07/20/2014 - 07/19/2015 Left URETEROSCOPY 07/20/2014 - 07/19/2015 HERNIA REPAIR 07/20/1990 - 07/19/1991 NOSE SURGERY 07/20/1972 - 07/19/1973 FRACTURE SURGERY 1973 SPINE SURGERY 1997 VASECTOMY 2006 ABDOMINAL SURGERY 1990 Medical History Medical History Date Comments Hx of thyroid cancer 1999 Papillary. [id number] History of osteomyelitis Sleep apnea Arthritis MRSA infection History of MRSA from L elbow bursitis in 2014 (likely triggered by steroid injection) History of radioactive iodin e thyroid ablation May 2015 - 150 mCu CML (chronic myeloid leukemia) (HCC) Sleep apnea Asthma 1965 Benign prostatic hyperplasia 2018 Cataract 2018 Infection 2015 Kidney stone PONV (postoperative nausea and vomiting) 1998 x1 only GERD (gastroesophageal reflux disease) Family History Medical History Relation Name Comments Diabetes Father JGP Family history of diabetes mellitus - (Added by TW Conv) Heart disease Maternal Grandfather WRO Breast cancer Mother BJP Cancer Mother BJP Diabetes Paternal Grandfather JOP Heart disease Paternal Grandfather JOP Cancer Paternal Grandmother AEP Thyroid disease Sister 1 Thyroid trou ble - (Added by TW Conv) Anesthesia problems Neg Hx Relation Name Status Comments Child 1 Alive Child 2 Alive Father JGP Alive Maternal Grandfather WRO Mother BJP Alive Paternal Grandfather JOP Paternal Grandmother AEP Sister 1 Alive Sister 2 Alive Sister 3 Alive Social History Tobacco Use Types Packs/Day Years Used Date Smoking Tobacco: Former Cigarettes 1 4 1 08/25/1982 - 06/24/1987 Smokeless Tobacco: Never Tobacco Cessation:Counseling Given: Not Answered Comments:quit in 1986 Alcohol Use Standard Drinks/Week Comments No 0 (1 standard drink = 0.6 oz pur e alcohol) AUDIT-C Answer Date Recorded Q1: How often do you have a drink containing alc ohol? Monthly or less 06/22/2023 Q2: How many drinks containi ng alcohol do you have on a typical day when you are drinking? 1 or 2 06/22/2023 Q3: How often do you have si x or more drinks on one occasion? Never 06/22/2023 Personal Safety Answer Date Recorded Have you ever been in or are you currently in a harmful physical or emotional relationship or is someone making you feel afraid or unsafe? Denies 07/23/2023 Sex and Gender Information Value Date Recorded Sex Assigned at Not on file Legal Sex Male 5:06 AM TOOL CHASER Gender Identity Not on file Sexual Orientation Not on file Obstetrics History Last Filed Vital Signs Vital Sign Reading Time Taken Comments Blood Pressure 126/66 10/17/2024 12:27 PM CDT Pulse 75 10/17/2024 12:27 PM CDT Temperature 36.8 C (98.2 F) 10/17/2024 12:27 PM CDT Respiratory Rate 20 10/17/2024 12:2 7 PM CDT Oxygen Saturation 97% 10/17/2024 12: 27 PM CDT Inhaled Oxygen Concentration - - Weight 118.8 kg (261 lb 12.8 oz) 2024 12:27 PM CDT Height 182.9 cm (6') 09/07/2024 11:05 AM TOOL CHASER Body Mass Index 35.51 09/07/2024 11:05 AM TOOL CHASER Plan of Treatment Health Maintenance Due Date Last Done Comments Colon Cancer Screening-Colonoscopy 1962 Depression Screening 1962 Hepatitis C Screening 1962 Prostate Cancer Screening-PSA 1962 DTaP/Tdap/Td Vaccine (1 - Tdap) 1973 Hepatitis B Screening 1980 Regular Well Visit/Exam 18-64 1980 Pneumococcal vaccine <65 (1 of 2 - PCV) 1981 Zoster Vaccine (1 of 2) 1981 Covid-19 Vaccine ( - 2023-2 5 season) 2024 09/18/2023, 04/13/2023, 03/22/2021, Additional history exists Influenza Vaccine (Season Ended) 2025 04/19/2021, 03/17/2020, 04/02/2019, Additional history exists Procedures Procedure Name Priority Date/Time Associated Diagnosis Comments EGFR Routine 10/17/2024 11:20 AM CDT CML (chronic myeloid leukemia) (HCC) DIFFERENTIAL AUTO Routine 10/17/2024 11: 20 AM CDT CML (chronic myeloid leukemia) (HCC) CBC WITH AUTO DIFFERENTIAL Routine 10/17/2024 11:20 AM CDT CML (chronic myeloid leukemia) (HCC) LACTATE DEHYDROGENASE Routine 10/17/2024 11:20 AM CDT CML (chronic myeloid leukemia) (HCC) URIC ACID Routine 10/17/2024 11:20 AM CDT CML (chronic myeloid leukemia) (HCC) MAGNESIUM Routine 10/17/2024 11:20 AM CDT CML (chronic myeloid leukemia) (HCC) COMPREHENSIVE METABOLIC PANEL Routine 10/17/2024 11:20 AM CDT CML (chronic myeloid leukemia) (HCC) REFLEX THYROGLOBULIN, TUMOR MARKER, IA, S Routine 09/07/2024 10:56 AM TOOL CHASER TSH Routine 09/07/2024 10:56 AM TOOL CHASER Papillary carcinoma of thyroid (HCC) THYROGLOBULIN REFLEX TO MS OR IA Routine 09/07/2024 10:56 AM TOOL CHASER Papillary carcinoma of thyroid (HCC) T4, FREE Routine 09/07/2024 10:56 AM TOOL CHASER Papillary carcinoma of thyroid (HCC) HEMOGLOBIN A1C Routine 09/07/2024 10:56 AM TOOL CHASER Class 2 severe obesity due to excess calories with serious comorbidity and body mass index (BMI) of 36.0 to 36.9 in adult (HCC) Prediabetes from Last 3 Months Results * eGFR (10/17/2024 11:20 AM CDT) eGFR 66 >=60 mL/min/1. 73 m2 Comment: Interpretive Data Reference Interval Normal >/= 90 mL/min/1.73m2 Mildly decreased* 60 - 89 mL/min/1.73m2 Mildly to moderately decreased 45 - 59 mL/min/1.73m2 Moderately to severely decreased 30 - 44 mL/min/1.73m2 Severely decreased 15 - 29 mL/min/1.73m2 Kidney Failure < 15 mL/min/1.73m2 *Relative to young adult level Estimated glomerular filtration rate is determined by the 2020 CKD-EPI equation recommended by the National Kidney Foundation (A Unifying Approach to GFR Estimation: Recommendations of the NKF-ASK Task Force on Reassessing the Inclusion of Race in Diagnosing Kidney Disease, JASN 2020). The CKD-EPI equation should not be used for patients with unstable renal function and has not been validated in children and those over 70. Current interpretive data was last reviewed 2021. Blood 10/17/2024 11:2 0 AM CDT 10/17/2024 11:29 AM CDT us Ezequiel Baugh MD LAB BLOOD ORDERABLES Final Re sult [facility] Department [place] [address] * Differential, auto (10/17/2024 11:20 AM CDT) Neutrophil abs 5.5 1.5 - 6.5 K/cumm Comment:Testing performed by : [facility], [address] [place] [phone] Lymphocyte abs 2.4 0.8 - 3.3 K/cumm [facility] Comment:Testing performed by : [facility], [address] [place] [phone] Monocyte abs 0.7 0.2 - 0.8 K/cumm [facility] Comment:Testing performed by : [facility], [address] [place] [phone] Eosinophil abs 0.2 0.0 - 0.5 K/cumm [facility] Comment:Testing performed by : [facility], [address] [place] [phone] Basophil abs 0.1 0.0 - 0.1 K/cumm [facility] Comment:Testing performed by : [facility], [address] [place] [phone] Neutrophil pct 61.9 % [facility] Comment: Interpretive Data Percent cell count reference ranges are not reported, since discordance with absolute values may lead to misinterpretation of CBC data. Current Interpretive Data was last revised on 2017. Testing performed by: [facility], [address] [place] [phone] Lymphocyte pct 26.9 % [facility] Comment: Interpretive Data Percent cell count reference ranges are not reported, since discordance with absolute values may lead to misinterpretation of CBC data. Current Interpretive Data was last revised on 2017. Testing performed by: [facility], [address] [place] [phone] Monocyte pct 8.1 % [facility] Comment: Interpretive Data Percent cell count reference ranges are not reported, since discordance with absolute values may lead to misinterpretation of CBC data. Current Interpretive Data was last revised on 2017. Testing performed by: [facility], [address] [place] [phone] Eosinophil pct 2.3 % [facility] Comment: Interpretive Data Percent cell count reference ranges are not reported, since discordance with absolute values may lead to misinterpretation of CBC data. Current Interpretive Data was last revised on 2017. Testing performed by: [facility], [address] [place] [phone] Basophil pct 0.8 % [facility] Comment: Interpretive Data Percent cell count reference ranges are not reported, since discordance with absolute values may lead to misinterpretation of CBC data. Current Interpretive Data was last revised on 2017. Testing performed by: [facility], [address] [place] [phone] Blood 10/17/2024 11:2 0 AM CDT 10/17/2024 11:27 AM CDT Ezequiel Baugh MD LAB BLOOD ORDERABLES Final Re sult [facility] Department [place] [address] * CBC with auto differential (10/17/2024 11:20 AM CDT) WBC 8.9 3.8 - 9.9 K/cumm Comment:Testing performed by : [facility], [address] [place] [address] Hgb 15.4 13.0 - 17.5 g/dL [facility] Comment:Testing performed by : [facility], [address] [place] [address] Hct 45.3 38.9 - 50.3 % [facility] Comment:Testing performed by : [facility], [address] [place] [address] Plt 167 150 - 400 K/cumm [facility] Comment:Testing performed by : [facility], [address] [place] [address] MPV 8.7 6.8 - 10.4 fL [facility] Comment:Testing performed by : [facility], [address] [place] [address] RBC 5.21 4.30 - 5.80 M/cumm [facility] Comment:Testing performed by : [facility], [address] [place] [address] MCV 86.9 81.3 - 96.4 fL [facility] Comment:Testing performed by : [facility], [address] [place] [address] MCH 29.5 27.1 - 33.3 pg [facility] Comment:Testing performed by : [facility], [address] [place] [address] MCHC 34.0 32.3 - 35.7 g/dL [facility] Comment:Testing performed by : [facility], [address] [place] [address] RDW CV 13.4 11.1 - 14.9 % [facility] Comment:Testing performed by : [facility], [address] [place] [phone] NRBC abs 0.00 0.00 - 0.01 K/cumm [facility] Comment:Testing performed by : [facility], [address] [place] [phone] Blood 10/17/2024 11:2 0 AM CDT 10/17/2024 11:27 AM CDT Ezequiel Baugh MD LAB BLOOD ORDERABLES Final Re sult Performing Organization Address City/[facility] Co de Phone Number [facility] [place] [address] * Uric acid (10/17/2024 11:20 AM CDT) Uric acid 5.9 3.0 - 8.0 mg/dL Blood 10/17/2024 11:2 0 AM CDT 10/17/2024 11:29 AM CDT Ezequiel Baugh MD LAB BLOOD ORDERABLES Final Re sult Performing Organization Address City/[facility] Co de Phone Number [facility] Department [place] [address] * Magnesium (10/17/2024 11:20 AM CDT) Pathologist [facility] Magnesium 2.3 1.4 - 2.5 mg/dL Blood 10/17/2024 11:2 0 AM CDT 10/17/2024 11:29 AM CDT Ezequiel Baugh MD LAB BLOOD ORDERABLES Final Re sult Performing Organization Address [facility] Co de Phone Number [facility] [place] [address] * Lactate dehydrogenase (LD) (10/17/2024 11:20 AM CDT) Lactate dehydrogenase (LDH) 180 100 - 250 Units/L Blood 10/17/2024 11:2 0 AM CDT 10/17/2024 11:29 AM CDT Ezequiel Baugh MD LAB BLOOD ORDERABLES Final Re sult [facility] Department [place] [address] * Comprehensive metabolic panel (10/17/2024 11:20 AM CDT) Pathologist [facility] Sodium 141 135 - 145 mmol/L Potassium, pl 4.2 3.3 - 4.9 mmol/L [facility] Chloride 108 97 - 110 mmol/L [facility] CO2 26 22 - 32 mmol/L [facility] Anion gap 7 2 - 15 mmol/L [facility] BUN 20 6 - 25 mg/dL [facility] Creatinine 1.25 0.80 - 1.30 mg/dL [facility] Glucose 95 70 - 199 mg/dL [facility] Comment: Interpretive Data Fasting glucose >/= 126 mg/dl is diagnostic for diabetes. Fasting is defined as no caloric intake for at least 8 hours. Fasting glucose between 100 mg/dl to 125 mg/dl is diagnostic of prediabetes. In a patient with classic symptoms of hyperglycemia or hyperglycemic crisis, a random glucose >/= 200 mg/dl is diagnostic for diabetes. In the absence of unequivocal hyperglycemia, results should be confirmed by repeat testing. The classification and Diagnosis of Diabetes Diabetes Care 202; 46: S19-S40. Current interpretive data was last revised 2022. Calcium 9.2 8.5 - 10.3 mg/dL [facility] Bilirubin, total 0.3 0.1 - 1.2 mg/dL [facility] Protein, pl 6.6 6.5 - 8.5 g/dL [facility] Albumin 4.1 3.5 - 5.0 g/dL [facility] Alk phos 57 40 - 130 Units/L [facility] ALT 26 7 - 55 Units/L [facility] AST 28 10 - 50 Units/L [facility] Blood 10/17/2024 11:2 0 AM CDT 10/17/2024 11:29 AM CDT us Ezequiel Baugh MD LAB BLOOD ORDERABLES Final Re sult [facility] Department [place] [address] * Reflex thyroglobulin, tumor marker, IA, S (09/07/2024 10:56 AM TOOL CHASER) Thyroglobulin, Tumor Marker <0.1 ng/mL [facility] Comment: REFERENCE VALUE Athyrotic <0.1 Intact Thyroid <=33 Thyroglobulin interp See Footnote [facility] Comment: Thyroglobulin (Tg) levels must be interpreted in the context of TSH levels, serial Tg measurements and radioiodine ablation status. Tg levels <0.1 ng/mL in athyrotic individuals on suppressive therapy indicate a minimal risk (<1-2%) of clinically detectable recurrent papillary/follicular thyroid cancer. ADDITIONAL INFORMATION PLEASE NOTE: The given cutoff of <1.8 IU/mL is for the detection of potential thyroglobulin antibody (TgAb) interference in thyroglobulin immunoassays. Thyroglobulin flagging is based on athyrotic reference values. A thyroglobulin antibody (TgAb) reference cutoff of <4.0 IU/mL may be more suitable for the evaluation of autoimmune thyroiditis. The thyroglobulin and thyroglobulin antibody testing methods are immunoenzymatic assays manufactured by [employer] and performed on the [employer] DXI 800. Values obtained from different assay methods or kits may be different and cannot be used interchangeably. The results cannot be interpreted as absolute evidence for the presence or absence of malignant disease. Test Performed by: [facility] [address] [place] [address] [employer]aming [employer] Operator: Diana Mac Ph.D.; CLIA# [id number] Blood 09/07/2024 10:5 6 AM TOOL CHASER 09/07/2024 12:54 PM TOOL CHASER Chandni Alicia MD LAB BLOOD ORDERABLES Final Resu lt [facility] [place] [address] [place] ref Lab * Thyroglobulin reflex to MS or IA (09/07/2024 10:56 AM TOOL CHASER) Anti-thyroglobulin <1.8 <1.8 IUnits/mL [facility] Comment: Thyroglobulin Antibody < 1.8 IU/mL. Thyroglobulin performed by Immunoassay to follow. Test Performed by: [facility] [address] [place] [id number] [employer] Operator: Diana Mac Ph.D.; CLIA# [id number] Blood 09/07/2024 10:5 6 AM TOOL CHASER 09/07/2024 12:54 PM TOOL CHASER Chandni Alicia MD LAB BLOOD ORDERABLES Final Resu lt Performing Organization Address [facility]/ZIP Co de Phone Number [facility] [place] [address] [facility] * TSH (09/07/2024 10:56 AM TOOL CHASER) Thyroid Stimulating Hormone 1.05 0.30 - 4.20 mcIUnit/mL Blood 09/07/2024 10:5 6 AM TOOL CHASER 09/07/2024 11:12 AM TOOL CHASER Chandni Alicia MD LAB BLOOD ORDERABLES Final Resu lt [facility] [place] [address] * T4, free (09/07/2024 10:56 AM TOOL CHASER) Free T4 1.60 0.90 - 1.70 ng/dL Blood 09/07/2024 10:5 6 AM TOOL CHASER 09/07/2024 11:12 AM TOOL CHASER Chandni Alicia MD LAB BLOOD ORDERABLES Final Resu Performing Organization Address [facility] de Phone Number [facility] Department [place] [address] * Hemoglobin A1c (09/07/2024 10:56 AM TOOL CHASER) [facility] Hgb A1C 5.4 4.0 - 5.6 % Estimated Average Glucose 108 mg/dL [facility] Comment: The ADA recommends reporting an estimated Average Glucose (eAG) with all Hemoglobin A1c results using the equation derived from a study of 507 normal and diabetic adults. Minority populations were underrepresented and children were not included. (Diabetes Care 2020; 43(S1): S66-S76). The eAG is not equivalent to a fasting glucose. Blood 09/07/2024 10:5 6 AM TOOL CHASER 09/07/2024 11:12 AM TOOL CHASER Result [facility] [facility] Chandni Alicia MD LAB BLOOD ORDERABLES Final Resu Performing Organization Address [facility] de Phone Number [facility] [place] [address] from Last 3 Months Insurance [facility] ACCESS CHOICE [facility] ACCESS CHOICE ANTHEM ACCESS CHOICE Care Teams Special Assemblies Supervisor Relationship Specialty Start Date End Date Maday Hagan PA [address] [place] [id number] PCP - General Physician Supervisor Hot Dip Tinning 04/29/23 Ezequiel Baugh MD [address] [place] [address] Medical Oncologist/Hematologis t Medical Oncology 01/26/18 Micheal Aleman MD [address] [address] Referring Physician Endocrinology Diabetes & Metabolism 01/26/18 Lali Watt NP [address] [address] Nurse Practitioner Medical Oncology 08/27/20 Dino Oleary, GISSELLE [address] [facility] [address] [place] [address] Referring Physician Optometry 02/01/22 Pete Coffman MD PhD [address] [place] [address] Referring Physician Neurology 09/14/23 Amelia Corey DPT [address] [place] [address] Physical Therapist Physical Therapy 10/22/23
--- OUTSIDE RECORDS SUMMARY | 2024-10-21 01:00 | XMS_ITS | Encounter Summary ---
Author Organization [facility] Address [address] [place] [address] Phone Care Team Providers Care Tire Inspector Name Role Phone Ezequiel Baugh MD Unavailable [phone] Micheal Aleman MD Unavailable [phone] Lali Watt COOK PRESSURE Unavailable Dino Oleary OD Unavailable [phone] Maday Hagan Primary Care Provider [phone] Pete Coffman MD PhD Unavailable Amelia Corey DPT Unavailable Encounter Details Date Type Department Care Team (Late st Contact Info) Description 09/07/2024 Results Follow-Up [facility] Endocrinology Metabolism and Lipid [address] [facility] 13th [place] [address] [place] [address] Chandni Alicia MD [address] [address] Social History Tobacco Use Types Packs/Day Years Used Date Smoking Tobacco: Former Cigarettes 1 4 1 08/25/1982 - 06/24/1987 Smokeless Tobacco: Never Comments:quit in 1986 Alcohol Use Standard Drinks/Week [...] on file 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 At goal. Continue same dose. above communicated to pt via [facility] result note SAMPLER documented in this encounter Plan of Treatment Not on file documented as of this encounter Visit Diagnoses Not on filedocumented in this encounter Care Teams Tire Inspector Relationship Specialty Start Date End Date Maday Hagan PA [address] [place] [address] PCP - General Physician Industrial Engineer 04/29/23 Ezequiel Baugh MD [address] [place] [address] Medical Oncologist/Hematologis t Medical Oncology 01/26/18 Micheal Aleman MD [address] [address] Referring Physician Endocrinology Diabetes & Metabolism 01/26/18 Lali Watt NP [address] [address] Nurse Practitioner Medical Oncology 08/27/20 Dino Oleary, GISSELLE [address] [facility] [address] [facility] [address] [place] [address] Referring Physician Optometry 02/01/22 Pete Coffman MD PhD [address] [place] [address] Referring Physician Neurology 09/14/23 Amelia Corey DPT [address] [place] [address] Physical Therapist Physical Therapy 10/22/23 documented as of this encounter
--- OUTSIDE RECORDS SUMMARY | 2024-10-21 01:00 | XMS_ITS | Encounter Summary ---
Author Organization [facility] Address [address] [place] [address] Phone Care Team Providers Care Unarmed Security Officer Name Role Phone Ezequiel Baugh MD Unavailable [phone] Micheal Aleman MD Unavailable [phone] Lali Watt LIFESTYLE BLOCK FARMER Unavailable Dino Oleary OD Unavailable [phone] Maday Hagan Primary Care Provider [phone] Pete Coffman MD PhD Unavailable Amelia Corey DPT Unavailable Encounter Details Date Type Department Care Team (Late st Contact Info) Description 10/05/2024 Documentation [facility] Scheduling [address] [place] [address] Jailyn Morris, sewer pipe layer Social History Tobacco Use Types Packs/Day Years [...] on file 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 Gender Identity Not on file Sexual Orientation Not on file documented as of this encounter Plan of Treatment Not on file documented as of this encounter Visit Diagnoses Not on filedocumented in this encounter Care Teams Unarmed Security Officer Relationship Specialty Start Date End Date Maday Hagan PA [facility] [place] [address] PCP - General Physician Clinical Associate 04/29/23 Ezequiel Baugh MD [address] [place] [address] Medical Oncologist/Hematologis t Medical Oncology 01/26/18 Micheal Aleman MD [address] [facility] [address] [place] [address] Referring Physician Endocrinology Diabetes & Metabolism 01/26/18 Lali Watt NP [address] [facility] [address] [place] [address] Nurse Practitioner Medical Oncology 08/27/20 Dino Oleary OD [address] [place] [address] Referring Physician Optometry 02/01/22 Pete Coffman MD PhD [address] [place] [address] Referring Physician Neurology 09/14/23 Amelia Corey DPT [address] [place] [address] Physical Therapist Physical Therapy 10/22/23 documented as of this encounter
--- OUTSIDE RECORDS SUMMARY | 2024-10-21 01:00 | XMS_ITS | Encounter Summary ---
Author Organization [facility] Address [address] [place] [address] Phone Care Team Providers Care Wireless Technician Name Role Phone Ezequiel Baugh MD Unavailable [phone] Micheal Almean MD Unavailable [phone] Lali Watt ASSEMBLER FAUCETS Unavailable Dino Oleary OD Unavailable [phone] Maday Hagan Primary Care Provider [phone] Pete Coffman MD PhD Unavailable Amelia Corey DPT Unavailable Reason for Referral * Diagnostic Lab (Routine) - Pending Review Specialty Diagnoses / Procedures Referred By Contac t Referred To Contact Lab Diagnoses CML (chronic myeloid leukemia) (HCC) Procedures BCR::ABL1 PCR quantitative p210 Ezequiel Baugh MD [address] DIV IM BONE MARROW TRANSPLANT, [address] [place] [address] Phone: tel: fax: Referral ID Status Reason Start Date Expiration Date V isits Requested Visits Authorized [id number] Pending Review 10/18/2024 11/17/2025 1 1 Encounter Details Date Type Department Care Team (Late st Contact Info) Description 10/18/2024 Orders Only [facility] Bone Marrow Transplant [address] 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 Gender Identity Not on file Sexual Orientation Not on file documented as of this encounter Plan of Treatment Scheduled Orders Name Type Priority Associated Diagnoses Orde r Schedule BCR::ABL1 PCR quantitative p210 Lab Routine CML (chronic myeloid leukemia) (HCC) Expected: 01/23/2025 (Approximate), Expires: 10/18/2025 documented as of this encounter Visit Diagnoses Diagnosis CML (chronic myeloid leukemia) (HCC)- Primary Chronic myeloid leukemia, without mention of having achieved remission documented in this encounter Care Teams Wireless Technician Relationship Specialty Start Date End Date Maday Hagan PA [address] [place] [address] PCP - General Physician Powertrain Calibration Engineer 04/29/23 Ezequiel Baugh MD [address] [place] [address] Medical Oncologist/Hematologis t Medical Oncology 01/26/18 Micheal Aleman MD [address] [facility] [address] [place] [address] Referring Physician Endocrinology Diabetes & Metabolism 01/26/18 Lali Watt NP [address] [facility] [address] [place] [address] Nurse Practitioner Medical Oncology 08/27/20 Dino Oleary OD [address] [facility] [place] [address] Referring Physician Optometry 02/01/22 Pete Coffman MD PhD [address] [place] [address] Referring Physician Neurology 09/14/23 Amelia Corey DPT [address] [place] [address] Physical Therapist Physical Therapy 10/22/23 documented as of this encounter
--- OUTSIDE RECORDS SUMMARY | 2024-10-21 01:00 | XMS_ITS | Referral Summary ---
Author Organization [facility] Address [address] [place] [address] Care Team Providers Care Central Communications Specialist Name Role Phone Ezequiel Baugh MD Unavailable [phone] Micheal Aleman MD Unavailable [phone] Lali Watt [employer] Unavailable [phone] Dino Oleary OD Unavailable [phone] Maday Hagan Primary Care Provider + [phone] Pete Coffman MD PhD Unavailable Amelia Corey DPT Unavailable [phone] Encounters Date Type Department Care Team Description 10/18/2024 Orders Only [facility] [address] [place] [phone] Shira Terry RN CML (chronic myeloid leukemia) (HCC) (Primary Dx) 10/17/2024 11:15 AM CDT Lab [facility] [address] [place] [address] CML (chronic myeloid leukemia) (HCC) 10/17/2024 12:00 PM CDT Office Visit [facility] [address] [place] [phone] Lali Watt NP CML (chronic myeloid leukemia) (HCC) (Primary Dx) 10/17/2024 11:00 AM CDT Lab [facility] Oncology Lab [address] [place] [address] [place] [address] CML (chronic myeloid leukemia) (HCC) 10/07/2024 Telephone [facility] [address] [phone] Shira Terry RN 10/05/2024 Documentation [facility] Scheduling [address] [place] [address] Jailyn Morris CPhT 09/07/2024 Telephone [facility] Endocrinology Metabolism and Lipid [address] [place] [phone] Key Petersen RN Prior Auth; zepbound 7.5 mg; zepbound 5 mg 09/07/2024 Results Follow-Up [facility] [address] [place] [phone] Chandni Alicia MD 09/07/2024 10:50 AM SALES PROMOTION COORDINATOR Lab [facility] [address] [place] [phone] Class 2 severe obesity due to excess calories with serious comorbidity and body mass index (BMI) of 36.0 to 36.9 in adult (HCC); Prediabetes; Papillary carcinoma of thyroid (HCC) 09/07/2024 11:20 AM SALES PROMOTION COORDINATOR Office Visit [facility] Endocrinology [facility]abolism [facility] Lipid [address] [place] [phone] Chandni Alicia MD Postoperative hypothyroidism (Primary Dx); Class 2 severe obesity due to excess calories with serious comorbidity and body mass index (BMI) of 36.0 to 36.9 in adult (HCC); Papillary carcinoma of thyroid (HCC); Prediabetes 08/02/2024 Documentation [facility] [address] [facility] [place] [address] Kellen Hodges CPhT Prior Auth (DASATINIB) 08/02/2024 Telephone [facility] [address] [phone] UEzequiel mercado MD from Last 3 Months Allergies No known active allergies Medications finasteride (PROSCAR) 5 mg tabletIndications: benign prostatic hyperplasia with lower urinary tract sx Take 1 tablet (5 mg total) by mouth saw handle assembler before breakfast 12 9 Active methocarbamoL (ROBAXIN) 500 mg tabletIndications: Muscle Spasm Take 1 tablet (500 mg total) by mouth as needed for muscle spasms 0 Active ergocalciferol (VITAMIN D) 50,000 unit capsuleIndications :Vitamin D Deficiency Take 1 capsule (50,000 Units total) by mouth once a week 1 Active cholecalciferol (VITAMIN D-3) 1,000 unit Take 1 tablet/capsul e (1,000 Units total) by mouth saw handle assembler before breakfast Active atorvastatin (LIPITOR) 20 mg [...] of 36.0 to 36.9 in adult (HCC) Inject 0.75 mL (2.4 mg total) under [...] 20 mg tabletIndications: CML (chronic myeloid leukemia) ([facility]) TAKE 1 TABLET BY MOUTH 1 TIME A DAY 30 tablet 11 5 Active tirzepatide, weight loss, (Zepbound) 5 mg/0.5 mL pen injectorIndication s:Class 2 severe obesity due to excess calories with serious comorbidity and body mass index (BMI) of 36.0 to 36.9 in adult ([facility]) Inject 0.5 mL (5 mg total) under the skin every 7 days For 4 weeks, then increase dose to 7.5mg weekly. Stop Wegovy 2 mL 5 Active tirzepatide, weight loss, (Zepbound) 7.5 mg/0.5 mL pen injectorIndication s:Class 2 severe obesity due to excess calories with serious comorbidity and body mass index (BMI) of 36.0 to 36.9 in adult ([facility]) Inject 0.5 mL (7.5 mg total) under the skin every 7 days For 4 weeks, then increase dose to 10mg weekly 2 mL 5 Active tirzepatide, weight loss, (Zepbound) 10 mg/0.5 mL pen injectorIndication s:Class 2 severe obesity due to excess calories with serious comorbidity and body mass index (BMI) of 36.0 to 36.9 in adult ([facility]) Inject 0.5 mL (10 mg total) [...] thyroid 11/16/2010 Overview (10/29/2017): Description: Thyroid Cancer Immunizations Immunization Administration Dates Next Due COVID-19 mRNA (WHATT) 0.3 m L (30 mcg) vaccine (12 years and up) 09/18/2023 Influenza, Quadrivalent, Sandy l Culture-based MDCK, Antibiotic Free, Intramuscular 05/24/2018 Influenza, Quadrivalent, Spl it, Intramuscular 04/02/2019 Influenza, Quadrivalent, Spl it, Preservative Free, Intramuscular 03/17/2020,04/02/2019,04/11/2015 Influenza, Unspecified 04/19/2021 Moderna SARS-CoV-2 Monovalen t Vaccination (12+ YRS) 03/22/2021,10/26/2020,09/14/2020 Pfizer Sars-Cov-2 Bivalent V accination (12+ YRS) 04/13/2023 RSV Vaccine, Pref, Recombina nt, Subunit, Adjuvanted, PF, IM (Arexvy) 09/18/2023 Social History Tobacco Use Types Packs/Day Years [...] on file Legal Sex Male 5:06 AM SALES PROMOTION COORDINATOR Gender Identity Not on file Sexual Orientation [...] Height 182.9 cm (6') 09/07/2024 11:05 AM SALES PROMOTION COORDINATOR Body Mass Index 35.51 09/07/2024 11:05 AM SALES PROMOTION COORDINATOR Plan of Treatment Not on file Procedures Procedure Name Priority Date/Time Associated Diagnosis [...] MARKER, IA, S Routine 09/07/2024 10:56 AM SALES PROMOTION COORDINATOR TSH Routine 09/07/2024 10:56 AM SALES PROMOTION COORDINATOR Papillary carcinoma of thyroid (HCC) THYROGLOBULIN REFLEX TO MS OR IA Routine 09/07/2024 10:56 AM SALES PROMOTION COORDINATOR Papillary carcinoma of thyroid (HCC) T4, FREE Routine 09/07/2024 10:56 AM SALES PROMOTION COORDINATOR Papillary carcinoma of thyroid (HCC) HEMOGLOBIN A1C Routine 09/07/2024 10:56 AM SALES PROMOTION COORDINATOR Class 2 severe obesity due to excess [...] ORDERABLES Final Re sult AUDI THOMAS [facility] Department [place] [address] * Differential, auto (10/17/2024 11:20 AM CDT) Neutrophil abs 5.5 1.5 - 6.5 K/cumm Comment:Testing performed by : [facility], [address] [place] [phone] Lymphocyte abs 2.4 0.8 - 3.3 K/cumm AUDI THOMAS Comment:Testing performed by : [facility], [address] [place] [phone] Monocyte abs 0.7 0.2 - 0.8 K/cumm AUDI THOMAS Comment:Testing performed by : [facility], [address] [place] [phone] Eosinophil abs 0.2 0.0 - 0.5 K/cumm AUDI THOMAS Comment:Testing performed by : [facility], [address] [place] [phone] Basophil abs 0.1 0.0 - 0.1 K/cumm CERJAVIER BJ Comment:Testing performed by : [facility], [address] [place] [phone] Neutrophil pct 61.9 % AUDI THOMAS Comment: Interpretive Data Percent cell count reference ranges are not reported, since discordance with absolute values may lead to misinterpretation of CBC data. Current Interpretive Data was last revised on 2017. Testing performed by: [facility], [address] [place] [phone] Lymphocyte pct 26.9 % CERJAVIER [facility] Comment: Interpretive Data Percent cell count reference ranges are not reported, since discordance with absolute values may lead to misinterpretation of CBC data. Current Interpretive Data was last revised on 2017. Testing performed by: [facility], [address] [place] [phone] Monocyte pct 8.1 % CERJAVIER THOMAS Comment: Interpretive Data Percent cell count reference ranges are not reported, since discordance with absolute values may lead to misinterpretation of CBC data. Current Interpretive Data was last revised on 2017. Testing performed by: [facility], [address] [place] [phone] Eosinophil pct 2.3 % AUDI THOMAS Comment: Interpretive Data Percent cell count reference ranges are not reported, since discordance with absolute values may lead to misinterpretation of CBC data. Current Interpretive Data was last revised on 2017. Testing performed by: [facility], [address] [place] [phone] Basophil pct 0.8 % CERJAVIER [facility] Comment: Interpretive Data Percent cell count reference ranges are not reported, since discordance with absolute values may lead to misinterpretation of CBC data. Current Interpretive Data was last revised on 2017. Testing performed by: [facility], [address] [place] [phone] Blood 10/17/2024 11:2 0 AM CDT 10/17/2024 11:27 AM CDT Ezequiel Baugh MD LAB BLOOD ORDERABLES Final Re sult AUDI THOMAS [facility] Department [place] [address] * CBC with auto differential (10/17/2024 11:20 AM CDT) [facility] WBC 8.9 3.8 - 9.9 K/cumm Comment:Testing performed by : [facility], [address] [place] [address] Hgb 15.4 13.0 - 17.5 g/dL CERNER BJ Comment:Testing performed by : [facility], [address] [place] [address] Hct 45.3 38.9 - 50.3 % CERNER BJ Comment:Testing performed by : [facility], [address] [place] [address] Plt 167 150 - 400 K/cumm CERNER BJ Comment:Testing performed by : [facility], [address] [place] [address] MPV 8.7 6.8 - 10.4 fL CERNER BJ Comment:Testing performed by : [facility], [address] [place], [place] [phone] RBC 5.21 4.30 - 5.80 M/cumm CERNER BJ Comment:Testing performed by : [facility], [address] [place] [address] MCV 86.9 81.3 - 96.4 fL CERNER BJ Comment:Testing performed by : [facility], [address] [place] [address] MCH 29.5 27.1 - 33.3 pg CERNER BJ Comment:Testing performed by : [facility], [address] [place] [address] MCHC 34.0 32.3 - 35.7 g/dL CERNER BJ Comment:Testing performed by : [facility], [address] [place] [address] RDW CV 13.4 11.1 - 14.9 % CERNER BJ Comment:Testing performed by : [facility], [address] [place] [address] NRBC abs 0.00 0.00 - 0.01 K/cumm CERNER BJ Comment:Testing performed by : [facility], [address] [place] [phone] Blood 10/17/2024 11:2 0 AM CDT 10/17/2024 11:27 AM CDT Ezequiel Baugh MD LAB BLOOD ORDERABLES Final Re sult Performing Organization Address City/[facility] Co de Phone Number [facility] [place] [address] * Uric acid (10/17/2024 11:20 AM CDT) Uric acid 5.9 3.0 - 8.0 mg/dL Blood 10/17/2024 11:2 0 AM CDT 10/17/2024 11:29 AM CDT Ezequiel Baugh MD LAB BLOOD ORDERABLES Final Re sult Performing Organization Address [facility] Co de Phone Number [facility] [place] [address] * Magnesium (10/17/2024 11:20 AM CDT) Magnesium 2.3 1.4 - 2.5 mg/dL Blood 10/17/2024 11:2 0 AM CDT 10/17/2024 11:29 AM CDT Ezequiel Baugh MD LAB BLOOD ORDERABLES Final Re sult Performing Organization Address City/[facility] [place] [address] * Lactate dehydrogenase (LD) (10/17/2024 11:20 AM CDT) Lactate dehydrogenase (LDH) 180 100 - 250 Units/L Blood 10/17/2024 11:2 0 AM CDT 10/17/2024 11:29 AM CDT Ezequiel Baugh MD LAB BLOOD ORDERABLES Final Re sult [facility] Department [place] [address] * Comprehensive metabolic panel (10/17/2024 11:20 AM CDT) Sodium 141 135 - 145 mmol/L Potassium, pl 4.2 3.3 - 4.9 mmol/L [facility] Chloride 108 97 - 110 mmol/L [facility] CO2 26 22 - 32 mmol/L [facility] Anion gap 7 2 - 15 mmol/L [facility] BUN 20 6 - 25 mg/dL [facility] Creatinine 1.25 0.80 - 1.30 mg/dL [facility] Glucose 95 70 - 199 mg/dL [facility] Comment: Interpretive Data Fasting glucose >/= 126 [...] classification and Diagnosis of Diabetes Diabetes Care 2021; 46: S19-S40. Current interpretive data was last revised 2022. Calcium 9.2 8.5 - 10.3 mg/dL [facility] Bilirubin, total 0.3 0.1 - 1.2 mg/dL [facility] Protein, pl 6.6 6.5 - 8.5 g/dL [facility] Albumin 4.1 3.5 - 5.0 g/dL [facility] Alk phos 57 40 - 130 Units/L [facility] ALT 26 7 - 55 Units/L [facility] AST 28 10 - 50 Units/L [facility] Blood 10/17/2024 11:2 0 AM CDT 10/17/2024 11:29 AM CDT us Ezequiel Baugh MD LAB BLOOD ORDERABLES Final Re sult AUDI THOMAS [facility] Department [place] [address] * Reflex thyroglobulin, tumor marker, IA, S (09/07/2024 10:56 AM SALES PROMOTION COORDINATOR) Thyroglobulin, Tumor Marker <0.1 ng/mL [facility] Comment: REFERENCE VALUE Athyrotic <0.1 Intact Thyroid <=33 Thyroglobulin interp See Footnote AUDI CASH Comment: Thyroglobulin (Tg) levels must be interpreted [...] testing methods are immunoenzymatic assays manufactured by [employer] and performed on the [employer] DXI 800. Values obtained from different assay methods or kits may be different and cannot be used interchangeably. The results cannot be interpreted as absolute evidence for the presence or absence of malignant disease. Test Performed by: [facility] [address] [place] [address] Pheresis Nurse: Diana Mac Ph.D.; CLIA# [id number] Blood 09/07/2024 10:5 6 AM SALES PROMOTION COORDINATOR 09/07/2024 12:54 PM SALES PROMOTION COORDINATOR us Chandni Alicia MD LAB BLOOD ORDERABLES Final Resu lt Performing Organization Address [facility] Co de Phone Number [facility] [place] [address] [facility] * Thyroglobulin reflex to MS or IA (09/07/2024 10:56 AM SALES PROMOTION COORDINATOR) Anti-thyroglobulin <1.8 <1.8 IUnits/mL [facility] Comment: Thyroglobulin Antibody < 1.8 IU/mL. Thyroglobulin performed by Immunoassay to follow. Test Performed by: [facility] [address] [place], [place] [id number] Pheresis Nurse: Diana Mac Ph.D.; CLIA# [id number] Blood 09/07/2024 10:5 6 AM SALES PROMOTION COORDINATOR 09/07/2024 12:54 PM SALES PROMOTION COORDINATOR us Chandni Alicia MD LAB BLOOD ORDERABLES Final Resu lt Performing Organization Address City/[facility] Co de Phone Number [facility] [place] [address] [facility] * TSH (09/07/2024 10:56 AM SALES PROMOTION COORDINATOR) Thyroid Stimulating Hormone 1.05 0.30 - 4.20 mcIUnit/mL Blood 09/07/2024 10:5 6 AM SALES PROMOTION COORDINATOR 09/07/2024 11:12 AM SALES PROMOTION COORDINATOR Chandni Alicia MD LAB BLOOD ORDERABLES Final Resu lt Performing Organization Address City/[facility]/ZIP Co de Phone Number [facility] [place] [address] * T4, free (09/07/2024 10:56 AM SALES PROMOTION COORDINATOR) Free T4 1.60 0.90 - 1.70 ng/dL Blood 09/07/2024 10:5 6 AM SALES PROMOTION COORDINATOR 09/07/2024 11:12 AM SALES PROMOTION COORDINATOR Chandni Alicia MD LAB BLOOD ORDERABLES Final Resu Performing Organization Address [facility] de Phone Number [facility] [place] [address] * Hemoglobin A1c (09/07/2024 10:56 AM SALES PROMOTION COORDINATOR) Hgb A1C 5.4 4.0 - 5.6 % Estimated Average Glucose 108 mg/dL [facility] Comment: The ADA recommends reporting an estimated Average Glucose (eAG) with all Hemoglobin A1c results using the equation derived from a study of 507 normal and diabetic adults. Minority populations were underrepresented and children were not included. (Diabetes Care 2020; 43(S1): S66-S76). The eAG is not equivalent to a fasting glucose. Blood 09/07/2024 10:5 6 AM SALES PROMOTION COORDINATOR 09/07/2024 11:12 AM SALES PROMOTION COORDINATOR Chandni Alicia MD LAB BLOOD ORDERABLES Final Resu Performing Organization Address [facility] de Phone Number AUDI [facility] Department [place] [address] from Last 3 Months Insurance [facility] ACCESS CHOICE ANTHEM ACCESS CHOICE ANTHEM ACCESS CHOICE Care Teams Central Communications Specialist Relationship Specialty Start Date End Date Maday Hagan PA [address] [place] [id number] PCP - General Physician Manager Internship 04/29/23 Ezequiel Baugh MD [address] [place] [address] Medical Oncologist/Hematologis t Medical Oncology 01/26/18 Micheal Aleman MD [address] [address] Referring Physician Endocrinology Diabetes & Metabolism 01/26/18 Lali Watt NP [address] [address] Nurse Practitioner Medical Oncology 08/27/20 Dino Oleary, GISSELLE [address] [facility] [place] [address] Referring Physician Optometry 02/01/22 Pete Coffman MD PhD [address] [place] [address] Referring Physician Neurology 09/14/23 Amelia Corey DPT [address] [place] [address] Physical Therapist Physical Therapy 10/22/23
--- OUTSIDE RECORDS SUMMARY | 2024-10-21 01:00 | XMS_ITS | Clinical Summary ---
Author Organization [facility] Address [address] [place] [address] Care Team Providers Care Wave Guide Assembler Name Role Phone Isaías Lowe MD Primary Care Provider [phone] Allergies No known active allergies Medications finasteride 5 MG tablet TK 1 T PO D 9 Active dasatinib (SPRYCEL) 70 MG tablet TAKE 1 TABLET DAILY WITH OR WITHOUT FOOD AT THE SAME TIME EACH DAY SWALLOW WHOLE DO NOT BREAK OR CRUSH (DOSE DECREASE) 0 Active levothyroxine 125 MCG tablet Take 250mcg during and Thursday and 375mcg on Thursday. 0 Active atorvastatin (LIPITOR) 20 MG tablet Take 1 tablet (20 mg total) by mouth nightly at bedtime. at bedtime. 4 Active tamsulosin (FLOMAX) 0.4 MG CapIndications:Left ureteral stone Take 1 capsule (0.4 mg total) by mouth daily. 30 capsule 4 Active HYDROcodone-acetami nophen (NORCO) 5-325 MG tabletIndications:A cute Pain < 7 Day Supply Take 1 tablet by mouth every 6 (six) hours as needed for Pain. Indications: Acute Pain < 7 Day Supply 12 tablet 4 Active ondansetron (ZOFRAN-ODT) 4 MG disintegrating tabletIndications:L eft ureteral stone Take 1 tablet (4 mg total) by mouth every 6 (six) hours as needed for Nausea. 20 tablet 4 Active Immunizations Name Administration Dates Next Due MODERNA COVID-19 (12+) MRNA, LNP-S, PF, 100 MCG/ 0.5 ML DOSE 10/26/2020,09/14/2020 Family History Medical History Relation Comments Diabetes Father Relation Status Comments Father Alive Mother Alive Social History Tobacco Use Types Packs/Day Years Used Date Smoking Tobacco: Never Smokeless Tobacco: Never Alcohol Use Standard Drinks/Week Comments Yes 0 (1 standard drink = 0.6 oz pur e alcohol) PHQ-2 Answer Date Recorded PHQ-2 Score - If the patient scores above 3, please move on to questions 3-9 0 04/11/2020 Sex and Gender Information Value Date Recorded Sex Assigned at Not on file Legal Sex Male 7:39 PM CDT Gender Identity Not on file Sexual Orientation Not on file Last Filed Vital Signs Vital Sign Reading Time Taken Comments Blood Pressure 163/78 12/29/2023 2:39 PM CDT Pulse 79 12/29/2023 2:39 PM CDT Temperature 36.4 C (97.5 F) 12/29/2023 2:39 PM CDT Respiratory Rate 16 12/29/2023 2:39 PM CDT Oxygen Saturation 97% 12/29/2023 2:39 PM CDT Inhaled Oxygen Concentration - - Weight 117.9 kg (260 lb) 12/29/2023 2:39 PM CDT Height 182.9 cm (6') 12/29/2023 2:39 PM CDT Body Mass Index 35.26 12/29/2023 2:39 PM CDT Plan of Treatment Health Maintenance Due Date Last Done Comments Colorectal Cancer Screening Colonoscopy (10 Years) 1962 Annual Physical 1965 DTaP, Tdap and Td Vaccines (1 - Tdap) 1981 Zoster Vaccines (1 of 2) 2012 COVID-19 Vaccine ( - season) 2024 09/18/2023, 04/13/2023, 03/22/2021, Additional history exists Influenza Adult (#1) 2024 04/19/2021, 03/17/2020, 04/02/2019, Additional history exists Hepatitis C Completed 11/12/2017 RSV Immunization or 60+ Years Completed 09/18/2023 Meningococcal B Vaccine Aged Out No l onger eligible based on patient's age to complete this topic Meningococcal Vaccine Aged Out No fidel elaine eligible based on patient's age to complete this topic Pneumococcal Vaccine: Pediatrics (0 to 5 Years) and At-Risk Patients (6 to 64 Years) Aged Out No longer eligible based on patient's age to complete this topic RSV Immunizations Under 20 Months Aged Out No longer eligible based on patient's age to complete this topic Procedures Procedure Name Priority Date/Time Associated Diagnosis Comments HEPATITIS C ANTIBODY Routine 11/12/2017 9:15 AM CDT from Last 3 Months or Most Recently Relevant to Health Maintenance Results * HEPATITIS C ANTIBODY (11/12/2017 9:15 AM CDT) HEPATITIS C AB NON-REACTI VE NON-REACTI VE 11/12/2017 9:04 PM CDT [facility] SERUM OR PLASMA SPECIMEN / Unknown 11/12/2017 9:15 AM CDT 11/12/2017 12:05 PM CDT us Generic Conversion Md [facility] Final R esult [facility] [address] [id number], from Last 3 Months or Most Recently Relevant to Health Maintenance Additional Health Concerns Infection Onset Date Last Indicated 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
[2024-10-21 12:45] VITALS: BP 125/78; PULSE 81; RESP 20; O2SAT 98; BMI 34.9
[2024-10-21] MEDS: LACTATED RINGERS 1,000 ML 150 ML IV CONT (12:49)
--- NOTE | 2024-10-21 13:09 | WPDANESEPPF ---
Anes - Initial Pre Proc Eval Procedure: Operation Date: 10/21/24 13:30 Proposed Procedures p Screening Colonoscopy - Santana Daniel MD Date/Time: 10/21/24 13:09 Surgeon: Santana Daniel MD Pre Op Diagnosis: neoplasm screening Patient Data Age: 63 Gender: M Height: 1.83 m Weight: 116.9 kg Last Vital Signs Pulse 81 10/21/24 12:45 Resp 20 10/21/24 12:45 BP 125/78 10/21/24 12:45 Pulse Ox 98 10/21/24 12:45 O2 Del Method Room Air 10/21/24 12:45 Allergies Allergy/AdvReac Type Severity Reaction Status Date / Time thiopental AdvReac Mild Vomiting Verified 10/21/24 12:43 Home Medications ?Medication ?Instructions ?Recorded ?Confirmed ?Type finasteride 5 mg tablet 5 mg PO QAM 07/04/21 10/21/24 History levothyroxine 125 mcg tablet 250 mcg PO QAM 07/04/21 10/21/24 History dasatinib 50 mg tablet (Sprycel) 20 mg PO DAILY 07/18/22 10/21/24 History cholecalciferol (vitamin D3) 25 25 mcg PO DAILY 04/15/23 10/21/24 History mcg (1,000 unit) capsule methocarbamol 500 mg tablet 500 mg PO TID PRN Muscle Spasm 04/25/24 10/10/24 History atorvastatin 20 mg tablet 20 mg PO QHS #90 tabs 06/01/24 10/21/24 Rx ergocalciferol (vitamin D2) 1,250 See Rx Instructions .Route 08/12/24 10/10/24 Rx mcg (50,000 unit) capsule .COMPLEX #13 caps tirzepatide (weight loss) 5 mg/0.5 5 mg subcut WEEKLY 10/10/24 10/10/24 History mL subcutaneous pen injector (Zepbound) Patient hx anesthesia problems: none Family hx anesthesia problems: none Results Review: All pre-operative results and documents have been reviewed as part of the pre-operative evaluation. 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 Chronic back pain Hypothyroid CML (chronic myelocytic leukemia) BPH (benign prostatic hyperplasia) GERD (gastroesophageal reflux disease) TERESA (obstructive sleep apnea) Hyperlipidemia Surgical History Surgical History History of laminectomy Hx of umbilical hernia repair History of thyroidectomy History of elbow surgery Hx of cataract surgery Family History Family History Mother Breast cancer Father Diabetes mellitus Grandparent Breast cancer Carcinoma of colon Diabetes mellitus Other Family history of malignant neoplasm Social History Social History Social History: 08/14/24 patient declined SDOH Smoking packs per day: 1 Smoking cigarettes per day: 20.0 Years smoked: 3 Smoking pack-years: 3.00 Smoking status: Never smoker Tobacco type: cigarettes Smoking end date: 07/20/92 Alcohol intake: current Drinks per week: 1 Alcohol use details: rarely Substance use: never Substance use type: does not use Lack of Transportation: No Lack of Food: Never True Current Housing: I Have Housing Concerned About Future Housing: No Difficulty Paying Gas/Electric Bills: No Difficulty Paying for Meds: No Currently Unemployed: No Education: Bachelor's Degree Difficulty w/ Childcare or Family Care: No Living arrangements: with family Additional living arrangements comments: CPAP Occupation/Education: occupation Additional occupation/education comments: [employer] Gender identity (if verbalized by the patient): Male Sexual Orientation (if Verbalized by the Patient): Straight or Heterosexual Spiritual care concerns: No Anes - Eval Final PreProcedure Day of Procedure 10/21/24 13:09 Patient weight: obese Lungs: normal air movement Airway: Mallampati scale class II Neurological: alert and oriented Last oral intake: >/= 8 hours ASA classification: III Emergent: no Anesthetic plan: proceed Anesthesia type and monitoring: general GIVS and standard monitoring Results Review: All pre-operative results and documents have been reviewed as part of the pre-operative evaluation. Obesity, hyperlipidemia, TERESA on CPAP, hx of thyroidectomy for thyroid ca. Pt can walk 1-2 fos, no cp or sob. Informed Consent: The patient's anesthetic plan and its attendant risks and benefits were discussed with the patient/family/POA. Questions were solicited and answers provided to the satisfaction of the patient/family/POA.
--- NOTE | 2024-10-21 13:29 | PM.HPGS ---
History of Present Illness History of Present Illness Consent: Risks, benefits, and alternatives have been discussed and questions answered. Patient agrees to proceed with procedure. 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 Chronic back pain Hypothyroid CML (chronic myelocytic leukemia) BPH (benign prostatic hyperplasia) GERD (gastroesophageal reflux disease) TERESA (obstructive sleep apnea) Hyperlipidemia Surgical History Surgical History History of laminectomy Hx of umbilical hernia repair History of thyroidectomy History of elbow surgery Hx of cataract surgery Family History Family History Mother Breast cancer Father Diabetes mellitus Grandparent Breast cancer Carcinoma of colon Diabetes mellitus Other Family history of malignant neoplasm Social History Social History Social History: 08/14/24 patient declined SDOH Smoking packs per day: 1 Smoking cigarettes per day: 20.0 Years smoked: 3 Smoking pack-years: 3.00 Smoking status: Never smoker Tobacco type: cigarettes Smoking end date: 07/20/92 Alcohol intake: current Drinks per week: 1 Alcohol use details: rarely Substance use: never Substance use type: does not use Lack of Transportation: No Lack of Food: Never True Current Housing: I Have Housing Concerned About Future Housing: No Difficulty Paying Gas/Electric Bills: No Difficulty Paying for Meds: No Currently Unemployed: No Education: Bachelor's Degree Difficulty w/ Childcare or Family Care: No Living arrangements: with family Additional living arrangements comments: CPAP Occupation/Education: occupation Additional occupation/education comments: [employer] Gender identity (if verbalized by the patient): Male Sexual Orientation (if Verbalized by the Patient): Straight or Heterosexual Spiritual care concerns: No Meds Home Medications and Allergies Home Medications ?Medication ?Instructions ?Recorded ?Confirmed ?Type finasteride 5 mg tablet 5 mg PO QAM 07/04/21 10/21/24 History levothyroxine 125 mcg tablet 250 mcg PO QAM 07/04/21 10/21/24 History dasatinib 50 mg tablet (Sprycel) 20 mg PO DAILY 07/18/22 10/21/24 History cholecalciferol (vitamin D3) 25 25 mcg PO DAILY 04/15/23 10/21/24 History mcg (1,000 unit) capsule methocarbamol 500 mg tablet 500 mg PO TID PRN Muscle Spasm 04/25/24 10/10/24 History atorvastatin 20 mg tablet 20 mg PO QHS #90 tabs 06/01/24 10/21/24 Rx ergocalciferol (vitamin D2) 1,250 See Rx Instructions .Route 08/12/24 10/10/24 Rx mcg (50,000 unit) capsule .COMPLEX #13 caps tirzepatide (weight loss) 5 mg/0.5 5 mg subcut WEEKLY 10/10/24 10/10/24 History mL subcutaneous pen injector (Zepbound) Allergies Allergy/AdvReac Type Severity Reaction Status Date / Time thiopental AdvReac Mild Vomiting Verified 10/21/24 12:43 Vital Signs Vital Signs - 24 hr 10/21/24 12:45 Pulse Rate 81 Respiratory Rate 20 Blood Pressure 125/78 Pulse Oximetry 98 Oxygen Delivery Room Air Exam Const: General: comfortable and no acute distress HENMT: Face/Nose/Sinus: Normal nares present Eyes: General: appearance normal, both eyes and all related structures Neck: Neck: no JVD Resp: Auscultation: clear to auscultation bilaterally Cardio: Rate: regular rate Rhythm: regular rhythm GI: Inspection: non-distended GI Palp: Yes Soft to palpation Skin: General skin exam: normal color Neuro: General: gait normal Speech: normal speech Extrem: General: normal to inspection Psych: Mental Status: mental status grossly normal Assessment and Plan Assessment and plan (1) Colon cancer screening: Code(s): Z12.11 - Encounter for screening for malignant neoplasm of colon Status: Acute Assessment and Plan: colonoscopy
[2024-10-21 13:44] VITALS: BP 106/67; PULSE 77; RESP 16; O2SAT 98
[2024-10-21 13:54] VITALS: BP 126/66; PULSE 73; RESP 22; O2SAT 100
[2024-10-21 14:04] VITALS: BP 123/72; PULSE 76; RESP 22; O2SAT 99
== END 2024-10-21 14:20 | disposition home or self-care (01) ==
PROVIDERS: PCP Physician Assistant Medical; Referring Provider Physician Assistant Medical; Visit Provider Internal Medicine Gastroenterology
PROC: 0DJD8ZZ Inspection of Lower Intestinal Tract, Via Natural or Artificial Opening Endoscopic (ICD-10-PCS; CPT 45378; principal; 2024-10-21 13:30)
DX: Z12.11 Encounter for screening for malignant neoplasm of colon (principal); D12.2 Benign neoplasm of ascending colon; K63.5 Polyp of colon; K57.30 Diverticulosis of large intestine without perforation or abscess without bleeding; E78.5 Hyperlipidemia, unspecified; E03.9 Hypothyroidism, unspecified; E55.9 Vitamin D deficiency, unspecified; N40.0 Benign prostatic hyperplasia without lower urinary tract symptoms; K21.9 Gastro-esophageal reflux disease without esophagitis; G47.33 Obstructive sleep apnea (adult) (pediatric); G89.29 Other chronic pain; M54.9 Dorsalgia, unspecified; E66.9 Obesity, unspecified; Z68.35 Body mass index [BMI] 35.0-35.9, adult; Z79.85 Long-term (current) use of injectable non-insulin antidiabetic drugs; Z99.89 Dependence on other enabling machines and devices; Z98.890 Other specified postprocedural states; Z85.6 Personal history of leukemia; Z85.850 Personal history of malignant neoplasm of thyroid; Z80.3 Family history of malignant neoplasm of breast; Z80.0 Family history of malignant neoplasm of digestive organs
CPT/HCPCS: 45385; 45380; 88305; J2003; J2704; J7120

== ENCOUNTER 2025-05-19 11:24 | Outpatient (CLI) | payer BC, SELFPAY ==
--- NOTE | ~2025-05-19 | XR_ITS ---
Abdominal radiograph(s) INDICATION: Kidney stone COMPARISON: Abdominal x-ray 05/17/2024 TECHNIQUE: 2 views abdomen FINDINGS: Lung bases clear. Scattered colonic stool. Small bowel loops not well seen. No evidence of organomegaly. Left renal stone as before. No acute bony abnormality. IMPRESSION: 1. Left renal stone as before. Reviewed, dictated and finalized at location R.
--- OUTSIDE RECORDS SUMMARY | 2025-05-19 11:37 | XMS_ITS | Encounter Summary ---
Author Organization [facility] Address [address] [place] [address] Phone Care Team Providers Care Surveyor Geophysical Prospecting Name Role Phone Ezequiel Baugh MD Unavailable [phone] Micheal Aleman MD Unavailable [phone] Lali Watt METAL INSPECTOR Unavailable Dino Oleary OD Unavailable [phone] Maday Hagan Primary Care Provider [phone] Pete Coffman MD PhD Unavailable Amelia Corey DPT Unavailable Encounter Details Date Type Department Care Team (Late st Contact Info) Description 10/05/2024 Documentation [facility] Medicine Scheduling [address] [place] [address] Jailyn Morris, senior clinical data analyst Social History Tobacco Use Types Packs/Day Years [...] on file Legal Sex Male 5:06 AM 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 Gender Identity Not on file Sexual Orientation Not on file documented as of this encounter Plan of Treatment Not on file documented as of this encounter Visit Diagnoses Not on filedocumented in this encounter Care Teams Surveyor Geophysical Prospecting Relationship Specialty Start Date End Date Maday Hagan PA [facility] [place] [address] PCP - General Physician Machine Puller And Laster 04/29/23 Ezequiel Baugh MD [address] [place] [address] Medical Oncologist/Hematologis t Medical Oncology 01/26/18 Micheal Aleman MD [address] [facility] [address] [place] [address] Referring Physician Endocrinology Diabetes & Metabolism 01/26/18 Lali Watt NP [address] [facility] [address] [place] [address] Nurse Practitioner Medical Oncology 08/27/20 Dino Oleary OD [address] [place] [address] Referring Physician Optometry 02/01/22 Pete Coffman MD PhD [address] [place] [address] Referring Physician Neurology 09/14/23 Amelia Corey DPT [address] [place] [address] Physical Therapist Physical Therapy 10/22/23 05/14/25 documented as of this encounter
--- OUTSIDE RECORDS SUMMARY | 2025-05-19 11:37 | XMS_ITS ---
Author Organization [facility] Address [address] [place] [address] Care Team Providers Care Service Station Manager Name Role Phone Ezequiel Baugh MD Unavailable [phone] Micheal Aleman MD Unavailable [phone] Lali Watt STILL OPERATOR WHISKEY Unavailable Dino Oleary OD Unavailable [phone] Maday Hagan Primary Care Provider [phone] Pete Coffman MD PhD Unavailable Active Problems Problem Noted Date Diagnosed Date Encounter for weight loss counseling 04/28/2025 Assessment & Plan (04/28/2025 11:18 AM CDT): Reviewed importance of adequate protein intake. Reviewed recommendation/goal of >/= 150 minutes/week moderate intensity aerobic exercise. Discussed okay to not track food/calories but that if they start to struggle or are not losing weight, this is a useful tool to help refocus. Discussed limiting calorie intake with restaurant options including planning meals prior to ordering, eating only half the meal, and substituting certain items. Obesity, Class II, BMI 35-39.9 04/28/2025 Assessment & Plan (04/28/2025 11:50 AM CDT): Discussed insulin resistance including effect on weight and risk for progression to diabetes. Recommended low-carb, low-glycemic diet; choose whole grains and avoid more highly processed carbohydrates. Discussed potential benefits of this w/r/t gut microbiome. Referred to ADA and [facility] [employer] [facility] websites for additional information on topics including glycemic index/carbohydrate choices, protein sources. Continue low carb, low glycemic diet. Adriano is currently on Zepbound 10mg ( last box and then he has mounjaro in fridge) ( insurance does not cover zepbound for weight loss but will cover mounjaro moving forward) Continue medication at current dose. May consider increase Mounjaro further in the future if no continued improvement. Discussed importance of cardio/strength training and developing plan to maintain muscle mass. increase physical activity, water, and protein (eat protein first, veggies, fruits, starchy veggies, legumes, grains) Increase to 60-80+ fl oz daily Increase protein intake to 70-90g daily Try to increase intentional physical activity and add in some strength training (weights, resistance bands, yoga, pilates) Reviewed importance of adequate protein intake. Reviewed recommendation/goal of >/= 150 minutes/week moderate intensity aerobic exercise. BMI 39.0-39.9,adult 04/28/2025 Assessment & Plan (04/28/2025 11:35 AM CDT): Patient's highest BMI was 39.3 ; initial BMI was 32.09; this has improved to 30.92 through medical management Encounter for exercise counseling 04/28/2025 Assessment & Plan (04/28/2025 11:47 AM CDT): I counseled the patient on exercise: Recommend 36 min. cardio daily. Based on availiable data on the secondary prevention of coronary heart disease, stroke and prediabetes, physical activity is potentially as active as many drug interventions.Rizwana Higuera: BMJ 2013 [id number]:[id number];04/2013; Diabetes Care, Volume 35, Jun 2012. Reviewed recommendation/goal of >/= 150 minutes/week moderate intensity aerobic exercise. Discussed need for weightbearing exercise in order to promote muscle gain and burning fat. TERESA (obstructive sleep apnea) 02/27/2025 Assessment & Plan (04/28/2025 11:18 AM CDT): Continue current CPAP use Discussed role of weight loss in improving TERESA sx. Discussed the importance of good quality, adequate sleep to manage weight. Discussed good sleep hygiene keeping regular bed time, avoiding watching TV or using electronics ( smart phone ) in bed. Emphasized the importance of wearing the sleep mask ( CPAP or BiPAP ) or using Inspire ( Implantable device ) to treat sleep apnea. Class 2 severe obesity due t o excess calories with serious comorbidity and body mass index (BMI) of 39.0 to 39.9 in adult 08/04/2023 Prediabetes 08/04/2023 Assessment & Plan (04/28/2025 11:19 AM CDT): Elevated A1c meets criteria for prediabetes Discussed insulin resistance including effect on weight and risk for progression to diabetes. Recommended low-carb, low-glycemic diet; choose whole grains and avoid more highly processed carbohydrates. Discussed potential benefits of this with relation to gut microbiome. Referred to ADA and [employer] [facility] websites for additional information on topics including glycemic index/carbohydrate choices, protein sources. Continue zepbound Prediabetes increases the risk of developing diabetes in the next 3 to 5 years. Prediabetes is reversible by decreasing Insulin resistance which can result from weight loss, low glycemic diet, increased physical activity and possibly taking medications such as Metformin. Acute medial meniscus tear of right knee [...] Linked Problems CML (chronic myeloid leukemi a) Treatment Medications Current Day (Day 1 , Cycle 7 - Planned for 05/15/2025) Next Day (Day 1, Cycle 8 - Planned for 09/04/2025) daSATinib (SPRYCEL) daSATinib (SPRYCEL) 100 mg tablet No medications scheduled. Past Treatment and Therapy Plans No past plan information found.
--- OUTSIDE RECORDS SUMMARY | 2025-05-19 11:37 | XMS_ITS | Clinical Summary ---
Author Organization [facility] Address [address] [place] [address] Care Team Providers Care Log Haul Chain Feeder Name Role Phone Ezequiel Baugh MD Unavailable [phone] Micheal Aleman MD Unavailable [phone] Lali Watt MEDIA/INSTRUCTIONAL DESIGNER Unavailable Dino Oleary OD Unavailable [phone] Maday Hagan Primary Care Provider [phone] Pete Coffman MD PhD Unavailable Allergies Active Allergy Reactions Criticality Noted Date Comments Thiopental Vomiting Low 01/23/2024 Medications finasteride (PROSCAR) 5 mg tabletIndications :benign prostatic hyperplasia with lower urinary tract sx Take 1 tablet (5 mg total) by mouth family and consumer education teacher before breakfast 12 06/15/20 19 Active methocarbamoL (ROBAXIN) 500 mg tabletIndications :Muscle Spasm Take 1 tablet (500 mg total) by mouth as needed for muscle spasms 04/29/20 20 Active ergocalciferol (VITAMIN D) 50,000 unit capsuleIndication s:Vitamin D Deficiency Take 1 capsule (50,000 Units total) by mouth once a week 03/04/20 21 Active cholecalciferol (VITAMIN D-3) 1,000 unit Take 1 tablet/capsu le (1,000 Units total) by mouth family and consumer education teacher before breakfast Active atorvastatin (LIPITOR) 20 mg tabletIndications :hyperlipidemia Take 1 tablet (20 mg total) by mouth nightly 11/05/19 22 Active betamethasone dipropionate (DEL-BETA) 0.05 % creamIndications: Rash and other nonspecific skin eruption Apply topically 2 (two) times a day as needed (Rash) 135 g 1 04/02/20 22 Active docusate sodium (COLACE) 100 mg capsuleIndication s:constipation Take 1 capsule (100 mg total) by mouth 2 (two) times a day 14 capsule 07/23/19 24 Active diclofenac sodium (VOLTAREN) 1 % gel Apply topically daily as needed Active gabapentin (NEURONTIN) 300 mg capsule Start one tab at night and increase to two tabs at night after 3 day as tolerated 60 capsule 2 02/03/20 24 Active levothyroxine (Synthroid) 125 mcg tabletIndications :Postoperative hypothyroidism TAKE 2 TABLETS BY MOUTH DAILY FOR 6 DAYS PER WEEK. 150 tablet 3 08/11/19 25 Active daSATinib (SPRYCEL) 20 mg tabletIndications :CML (chronic myeloid leukemia) TAKE 1 TABLET BY MOUTH 1 TIME A DAY 30 tablet 11 08/30/19 25 Active tirzepatide (MOUNJARO) 10 mg/0.5 mL pen injector injection Inject 0.5 mL (10 mg total) under the skin every 7 days 2 mL 1 04/11/20 25 Active ofloxacin (OCUFLOX) 0.3 % ophthalmic solution INSTILL 1 DROP RIGHT EYE 4 TIMES A DAY START ON 05/04/25 04/28/20 25 Active prednisoLONE acetate (PRED FORTE) 1 % ophthalmic suspension INSTILL 1 DROP RIGHT EYE 4 TIMES A DAY START ON 05/04/25 04/28/20 25 Active meloxicam (MOBIC) 15 mg tablet TAKE 1 TABLET (15 MG TOTAL) BY MOUTH DAILY. 30 tablet 1 03/14/20 25 025 Discontinued Active Problems Problem Noted Date Diagnosed Date [...] w/r/t gut microbiome. Referred to ADA and [employer] websites for additional information on topics including glycemic index/carbohydrate choices, protein sources. Continue low carb, low glycemic diet. Jose Elias is currently on Zepbound 10mg ( last [...] to gut microbiome. Referred to ADA and [employer] websites for additional information on topics including [...] Encounters Date Type Department Care Team Description 05/15/2025 10:45 AM CDT Office Visit [facility] Medicine Bone Marrow Transplant [address] [place] [phone] Lali Watt NP CML (chronic myeloid leukemia) (Primary Dx) 05/15/2025 10:00 AM CDT Lab [facility] - Lab Collection [address] [place] [address] Floor 6 [place] [address] CML (chronic myeloid leukemia) 05/15/2025 9:45 AM CDT Lab [facility] Medicine Oncology Lab [address] [place] [phone] CML (chronic myeloid leukemia) 04/28/2025 11:30 AM CDT Telemedicine [facility] Medicine Metabolic Weight Management [facility] [address], [address] [place] [address] Madelyn Bueno PA Encounter for weight loss counseling (Primary Dx); Obesity, Class II, BMI 35-39.9; BMI 39.0-39.9,adult; Encounter for exercise counseling; TERESA (obstructive sleep apnea); Prediabetes 04/18/2025 11:00 AM CDT Lab [facility] - Lab Collection [facility] Floor 6 [place] [address] CML (chronic myeloid leukemia) 04/18/2025 10:00 AM CDT Lab [facility] Medicine Oncology Lab [address] [place] [address] Floor 6 [place] [address] CML (chronic myeloid leukemia) 04/11/2025 Orders Only [facility] Endocrinology Metabolism and Lipid [address] [facility] 13th Floor [address] [place] [phone] Taina Lawson RN 03/22/2025 4:15 PM CDT Office Visit [facility] Orthopaedic Surgery [address] [facility] 12th Floor [address] [place] [phone] Homero Larry MD Tear of right rotator cuff, unspecified tear extent, unspecified whether traumatic (Primary Dx) 03/13/2025 9:30 AM CDT Lab [facility] - Lab Collection [address] [place] [address] 6 [place] [address] CML (chronic myeloid leukemia) 03/13/2025 9:00 AM CDT Lab [facility] Medicine Oncology Lab [address] [place] [address] 6 [place] [address] CML (chronic myeloid leukemia) 03/13/2025 Telephone [facility] Metabolic Weight Management [facility] [address], [address] [place] [address] Edith Valero medication question (Zepbound / Mounjaro) 03/08/2025 Telephone [facility] Endocrinology Metabolism and Lipid [address] [facility] 13th Floor [address] [place] [phone] Christine Mccallum RMA Prior Auth (Zepbound 10mg/0.5ml) 03/07/2025 Telephone [facility] Medicine Endocrinology Metabolism and Lipid [address] [facility] 13th Floor [address] [place] [phone] Christine Mccallum RMA Medication Alternate ([employer]) 02/27/2025 3:00 PM CDT Office Visit [facility] Metabolic Weight Management [address] [facility] 13th [place] [address] [place] [address] Minerva Flores MD PhD Class 2 severe obesity due to excess calories with serious comorbidity and body mass index (BMI) of 39.0 to 39.9 in adult (HCC) (Primary Dx); Nutritional counseling; Exercise counseling; CML (chronic myeloid leukemia); Prediabetes; Postoperative hypothyroidism; TERESA (obstructive sleep apnea) from Last 3 Months Immunizations Immunization Administration Dates Next Due COVID-19 mRNA ([employer]) 0.3 m L (30 mcg) vaccine (12 [...] NOSE SURGERY 07/20/1972 - 07/19/1973 FRACTURE SURGERY 1972 SPINE SURGERY 1997 VASECTOMY 2006 ABDOMINAL SURGERY 1990 Medical History Medical History Date Comments Hx of thyroid cancer 1999 Papillary. [id number] History of osteomyelitis Sleep apnea Arthritis MRSA infection History of MRSA from L elbow bursitis in 2014 (likely triggered by steroid injection) History of radioactive iodin e thyroid ablation May 2015 - 150 mCu CML (chronic myeloid leukemia) Sleep apnea Asthma 1965 Benign prostatic hyperplasia 2018 Cataract 2018 Infection 2015 Kidney stone PONV (postoperative nausea and vomiting) 1998 x1 only GERD (gastroesophageal reflux disease) Thyroid cancer (HCC) 03/20/2000 Hypothyroidism 03/20/2000 Family History Medical History Relation Name Comments Diabetes Father JGP Family history of diabetes mellitus - (Added by TW Conv) Heart disease Maternal Grandfather WRO Breast cancer Mother BJP Cancer Mother BJP Diabetes Paternal Grandfather JOP Heart disease Paternal Grandfather JOP Cancer Paternal Grandmother AEP Thyroid disease Sister 1 EGP Thyroid trou ble - (Added by TW Conv) Sleep apnea Sister 2 Anesthesia problems Neg Hx Relation Name Status Comments Child 1 Alive Child 2 Alive Father JGP Alive Maternal Grandfather WRO Mother BJP Alive Paternal Grandfather JOP Paternal Grandmother AEP Sister 1 EGP Alive Sister 2 Alive Sister 3 Alive [...] you have a drink containing alc ohol? 2-4 times a month 02/27/2025 Average Number of Drinks Not on file 025 Frequency of Binge Drinking Not on file 02/17 Personal Safety Answer Date Recorded Have you ever been in or are you currently in a harmful physical or emotional relationship or is someone making you feel afraid or unsafe? 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 Gender Identity Not on file Sexual Orientation Not on file Obstetrics History Last Filed Vital Signs Vital Sign Reading Time Taken Comments Blood Pressure 134/79 05/15/2025 10:29 AM CDT Pulse 97 05/15/2025 10:29 AM CDT Temperature 36.7 C (98.1 F) 05/15/2025 10:29 AM CDT Respiratory Rate 18 05/15/2025 10:2 9 AM CDT Oxygen Saturation 98% 05/15/2025 10: 29 AM CDT Inhaled Oxygen Concentration - - Weight 104.2 kg (229 lb 12.8 oz) 2024 10:29 AM CDT Height 182.9 cm (6') 04/28/2025 11:33 AM CDT Body Mass Index 31.17 04/28/2025 11:33 AM CDT Plan of Treatment Health Maintenance Due Date Last Done Comments Colon Cancer Screening-Colonoscopy 1962 Depression Screening 1962 Hepatitis C Screening 1962 Prostate Cancer Screening-PSA 1962 Hepatitis B Screening 1980 Regular Well Visit/Exam 18-64 1980 Pneumococcal vaccine <65 (1 of 2 - PCV) 1981 Covid-19 Vaccine (6 - 2024-2 6 season) 2025 09/18/2023, 04/13/2023, 03/22/2021, Additional history exists Influenza Vaccine (#1) 2025 , 04/27/2022, 04/19/2021, Additional history exists DTaP/Tdap/Td Vaccine (2 - Td or Tdap) 08/23/2031 08/23/2021 Zoster Vaccine Completed 08/23/2021, 05/16/2021 Procedures Procedure Name Priority Date/Time Associated Diagnosis Comments EGFR Routine 05/15/2025 10:21 AM CDT CML (chronic myeloid leukemia) DIFFERENTIAL AUTO Routine 05/15/2025 10: 21 AM CDT CML (chronic myeloid leukemia) BCR/ABL P210 QUANTITATIVE, PCR Routine 05/15/2025 10:21 AM CDT CML (chronic myeloid leukemia) URIC ACID Routine 05/15/2025 10:21 AM CDT CML (chronic myeloid leukemia) CBC WITH AUTO DIFFERENTIAL Routine 05/15/2025 10:21 AM CDT CML (chronic myeloid leukemia) COMPREHENSIVE METABOLIC PANEL Routine 05/15/2025 10:21 AM CDT CML (chronic myeloid leukemia) LACTATE DEHYDROGENASE Routine 05/15/2025 10:21 AM CDT CML (chronic myeloid leukemia) MAGNESIUM Routine 05/15/2025 10:21 AM CDT CML (chronic myeloid leukemia) DIFFERENTIAL AUTO Routine 04/18/2025 11: 03 AM CDT CML (chronic myeloid leukemia) BCR/ABL P210 QUANTITATIVE, PCR Routine 04/18/2025 11:03 AM CDT CML (chronic myeloid leukemia) CBC WITH AUTO DIFFERENTIAL Routine 04/18/2025 11:03 AM CDT CML (chronic myeloid leukemia) DIFFERENTIAL AUTO Routine 03/13/2025 9:5 6 AM CDT CML (chronic myeloid leukemia) CBC WITH AUTO DIFFERENTIAL Routine 03/13/2025 9:56 AM CDT CML (chronic myeloid leukemia) BCR/ABL P210 QUANTITATIVE, PCR Routine 03/13/2025 9:56 AM CDT CML (chronic myeloid leukemia) from Last 3 Months Results * BCR::ABL1 PCR quantitative p210 (05/15/2025 10:21 AM CDT) [facility] BCR/ABL p210 Not Detected [facility] BCR/ABL p210 Interpretation Not detected: There is no evidence of a major (p210) BCR::ABL1 fusion transcript by quantitative RT-PCR analysis. AUDI [facility] BCR/ABL p210 Specimen Blood AUDI [facility] BCR/ABL p210 Result Review Final report reviewed by: KECIA Olivarez, Women Specialist, on 05/16/2025 11:23:12 CDT. [facility] Comment: Interpretive Data A summary of previous BCR::ABL1 major quantitative RT-PCR results for this patient performed in the [facility] Molecular Diagnostics Lab may be found as a cumulative laboratory report in the Results Review section of the Medical Record. Method: The quantitative BCR::ABL1 assay is performed on the [employer] ([employer]) platform. RNA is extracted, converted to cDNA, and BCR::ABL1 and ABL1 cDNA targets are quantified by real-time PCR amplification. Results are reported as the percentage ratio of BCR::ABL1 fusion transcripts to ABL1 transcripts (BCR::ABL1/ABL1) on the International Scale (Kaylee MULTANI, 2010). A BCR::ABL1 value of 0.1% on the International Scale represents a major molecular response in CML (Debra S, 2008). The analytical sensitivity of this assay is 0.0032% BCR::ABL1/ABL1. Due to assay non-linearity for the BCR::ABL1 p210 isoform at very high and low concentrations, results greater than 10% (above upper limit of quantification or ULOQ) will be reported as > 10% and results detected at less than 0.0032% (below lower limit of quantification or LLOQ) will be reported as < 0.0032% . Limitations: This test only detects the e13a2 and e14a2 BCR::ABL1 major isoforms. A negative result does not exclude the presence of the e1a2 (p190) BCR::ABL1 minor isoforms. False positive or negative results may occur with unusual BCR::ABL1 isoforms. FDA Comment: This test was developed and its performance characteristics determined by this Molecular Diagnostics Lab. Peripheral blood testing has been cleared by the U.S. Food and Drug Administration (FDA). Alternative specimen types, including extracted RNA or bone marrow aspirates have not been cleared or approved by the U.S. Food and Drug Administration. FDA does not require those modifications to go through premarket FDA review. This test is used for clinical purposes. It should not be regarded as investigational or for research. This laboratory is certified under the Clinical Laboratory Improvement Amendments (CLIA) as qualified to perform high complexity clinical laboratory testing. Literature References: Debra S, Brooke L, Cross N, et al. Desirable performance characteristics for BCR-ABL measurement on an international reporting scale to allow consistent interpretation of individual patient response and comparison of response rate between clinical trials. Blood 2008;113:5167-3371. Kaylee MULTANI, Mil P, Leisa P, et al. Establishment of the first World Health Organization International Genetic Reference Panel for quantification of BCR-ABL mRNA. Blood 2010;116:w782-762. [employer] BCR-ABL V2 Package Insert [id number], Rev B (May 2016). Xpert BCR-ABL Monitor, [id number], Rev A, November 2010. This test was performed at: [facility], [facility]#[id number], Estelle Slade, Ph.D., [place], [address], [place] Current interpretive data was last revised 2023. Blood 05/15/2025 10:2 1 AM CDT 05/15/2025 11:49 AM CDT Ezequiel Baugh MD LAB GENETIC TESTING Final Res ult AUDI [facility] Department [place] [address] [facility] * eGFR (05/15/2025 10:21 AM CDT) eGFR 64 >=60 mL/min/1. 73 m2 Comment: Interpretive Data [...] interpretive data was last reviewed 2021. Blood 05/15/2025 10:2 1 AM CDT 05/15/2025 10:32 AM CDT Ezequiel Baugh MD LAB BLOOD ORDERABLES Final Re sult [facility] Department [place] [address] * Differential, auto (05/15/2025 10:21 AM CDT) Neutrophil abs 5.47 1.50 - 6.50 K/cumm Comment:Testing performed by : [facility], [address] [place] [phone] Lymphocyte abs 1.75 0.80 - 3.30 K/cumm CERNER [facility] Comment:Testing performed by : [facility], [address] [place] [phone] Monocyte abs 0.63 0.20 - 0.80 K/cumm [facility] Comment:Testing performed by : [facility], [address] [place] [phone] Eosinophil abs 0.19 0.00 - 0.50 K/cumm [facility] Comment:Testing performed by : [facility], [address] [place] [phone] Basophil abs 0.09 0.00 - 0.10 K/cumm CERNER [facility] Comment:Testing performed by : [facility], [address] [place] [phone] Neutrophil pct 67.3 % [facility]ER [facility] Comment: Interpretive Data Percent cell count reference ranges are not reported, since discordance with absolute values may lead to misinterpretation of CBC data. Current Interpretive Data was last revised on 2017. Testing performed by: [facility], [address] [place] [phone] Lymphocyte pct 21.6 % [facility]ER [facility] Comment: Interpretive Data Percent cell count reference ranges are not reported, since discordance with absolute values may lead to misinterpretation of CBC data. Current Interpretive Data was last revised on 2017. Testing performed by: [facility], [address] [place] [phone] Monocyte pct 7.7 % [facility] Comment: Interpretive Data Percent cell count reference ranges are not reported, since discordance with absolute values may lead to misinterpretation of CBC data. Current Interpretive Data was last revised on 2017. Testing performed by: [facility], [address] [place] [phone] Eosinophil pct 2.3 % AUDI CASH Comment: Interpretive Data Percent cell count reference ranges are not reported, since discordance with absolute values may lead to misinterpretation of CBC data. Current Interpretive Data was last revised on 2017. Testing performed by: [facility], [address] [place] [phone] Basophil pct 1.1 % AUDI THOMAS Comment: Interpretive Data Percent cell count reference ranges are not reported, since discordance with absolute values may lead to misinterpretation of CBC data. Current Interpretive Data was last revised on 2017. Testing performed by: [facility], [address] [place] [phone] Blood 05/15/2025 10:2 1 AM CDT 05/15/2025 10:30 AM CDT Ezequiel Baugh MD LAB BLOOD ORDERABLES Final Re sult AUDI THOMAS [facility] Department [place] [address] * CBC with auto differential (05/15/2025 10:21 AM CDT) WBC 8.13 3.80 - 9.90 K/cumm Comment:Testing performed by : [facility], [address] [place] [phone] Hgb 16.0 13.0 - 17.5 g/dL AUDI CASH Comment:Testing performed by : [facility], [address] [place] [phone] Hct 46.5 38.9 - 50.3 % AUDI CASH Comment:Testing performed by : [facility], [address] [place] [address] Plt 188 150 - 400 K/cumm [facility] Comment:Testing performed by : [facility], [address] [place] [address] MPV 8.1 6.8 - 10.4 fL [facility] Comment:Testing performed by : [facility], [address] [place], [place] [phone] RBC 5.55 4.30 - 5.80 M/cumm AUDI [facility] Comment:Testing performed by : [facility], [address] [place] [address] MCV 83.8 81.3 - 96.4 fL AUDI [facility] Comment:Testing performed by : [facility], [address] [place], [place] [phone] MCH 28.8 27.1 - 33.3 pg [facility] Comment:Testing performed by : [facility], [address] [place] [address] MCHC 34.3 32.3 - 35.7 g/dL [facility] Comment:Testing performed by : [facility], [address] [place] [address] RDW CV 13.6 11.1 - 14.9 % [facility] Comment:Testing performed by : [facility], [address] [place] [address] NRBC abs 0.00 0.00 - 0.01 K/cumm [facility] Comment:Testing performed by : [facility], [address] [place] [address] Blood 05/15/2025 10:2 1 AM CDT 05/15/2025 10:30 AM CDT Ezequiel Baugh MD LAB BLOOD ORDERABLES Final Re sult [facility] Department [place] [address] * Uric acid (05/15/2025 10:21 AM CDT) Uric acid 6.1 3.0 - 8.0 mg/dL Blood 05/15/2025 10:2 1 AM CDT 05/15/2025 10:32 AM CDT Ezequiel Baugh MD LAB BLOOD ORDERABLES Final Re sult Performing Organization Address City/[facility] Co de Phone Number [facility] [place] [address] * Magnesium (05/15/2025 10:21 AM CDT) Pathologist [facility] Magnesium 2.2 1.4 - 2.5 mg/dL Blood 05/15/2025 10:2 1 AM CDT 05/15/2025 10:32 AM CDT Ezequiel Baugh MD LAB BLOOD ORDERABLES Final Re sult Performing Organization Address [facility] Co de Phone Number [facility] [place] [address] * Lactate dehydrogenase (LD) (05/15/2025 10:21 AM CDT) Pathologist [facility] Lactate dehydrogenase (LDH) 162 100 - 250 Units/L Blood 05/15/2025 10:2 1 AM CDT 05/15/2025 10:32 AM CDT Ezequiel Baugh MD LAB BLOOD ORDERABLES Final Re sult Performing Organization Address [facility] Co de Phone Number [facility] [place] [address] * Comprehensive metabolic panel (05/15/2025 10:21 AM CDT) Pathologist [facility] Sodium 139 135 - 145 mmol/L Potassium, pl 4.3 3.3 - 4.9 mmol/L [facility] Chloride 104 97 - 110 mmol/L [facility] CO2 27 22 - 32 mmol/L [facility] Anion gap 8 2 - 15 mmol/L [facility] BUN 16 6 - 25 mg/dL [facility] Creatinine 1.27 0.80 - 1.30 mg/dL [facility] Glucose 124 70 - 199 mg/dL [facility] Comment: Interpretive Data Fasting glucose >/= 126 [...] interpretive data was last revised 2022. Calcium 9.3 8.5 - 10.3 mg/dL [facility] Bilirubin, total 0.6 0.1 - 1.2 mg/dL [facility] Protein, pl 6.6 6.5 - 8.5 g/dL [facility] Albumin 4.1 3.5 - 5.0 g/dL [facility] Alk phos 61 40 - 130 Units/L [facility] ALT 24 7 - 55 Units/L [facility] AST 21 10 - 50 Units/L [facility] Blood 05/15/2025 10:2 1 AM CDT 05/15/2025 10:32 AM CDT Ezequiel Baugh MD LAB BLOOD ORDERABLES Final Re sult [facility] Department [place] [address] * BCR::ABL1 PCR quantitative p210 (04/18/2025 11:03 AM CDT) [facility] BCR/ABL p210 Not Detected [facility] BCR/ABL p210 Interpretation Not detected: There is no evidence of a major (p210) BCR::ABL1 fusion transcript by quantitative RT-PCR analysis. [facility] BCR/ABL p210 Specimen Blood [facility] BCR/ABL p210 Result Review Final report reviewed by: KECIA Malik, Regional Controller, on 04/19/2025 11:19:41 CDT. [facility] Comment: Interpretive Data A summary of previous BCR::ABL1 major quantitative RT-PCR results for this patient performed in the [facility] Molecular Diagnostics Lab may be found as a cumulative laboratory report in the Results Review section of the Medical Record. Method: The quantitative BCR::ABL1 assay is performed on the [employer]) platform. RNA is extracted, converted to cDNA, and BCR::ABL1 and ABL1 cDNA targets are quantified by real-time PCR amplification. Results are reported as the percentage ratio of BCR::ABL1 fusion transcripts to ABL1 transcripts (BCR::ABL1/ABL1) on the International Scale (Kaylee MULTANI, 2010). A BCR::ABL1 value of 0.1% on the International Scale represents a major molecular response in CML (Debra Mark, 2008). The analytical sensitivity of this assay is 0.0032% BCR::ABL1/ABL1. Due to assay non-linearity for the BCR::ABL1 p210 isoform at very high and low concentrations, results greater than 10% (above upper limit of quantification or ULOQ) will be reported as > 10% and results detected at less than 0.0032% (below lower limit of quantification or LLOQ) will be reported as < 0.0032% . Limitations: This test only detects the e13a2 and e14a2 BCR::ABL1 major isoforms. A negative result does not exclude the presence of the e1a2 (p190) BCR::ABL1 minor isoforms. False positive or negative results may occur with unusual BCR::ABL1 isoforms. FDA Comment: This test was developed and its performance characteristics determined by this [facility]. Peripheral blood testing has been cleared by the U.S. Food and Drug Administration (FDA). Alternative specimen types, including extracted RNA or bone marrow aspirates have not been cleared or approved by the U.S. Food and Drug Administration. FDA does not require those modifications to go through premarket FDA review. This test is used for clinical purposes. It should not be regarded as investigational or for research. This laboratory is certified under the Clinical Laboratory Improvement Amendments (CLIA) as qualified to perform high complexity clinical laboratory testing. Literature References: Monster Shoemakertcher L, Yony N, et al. Desirable performance characteristics for BCR-ABL measurement on an international reporting scale to allow consistent interpretation of individual patient response and comparison of response rate between clinical trials. Blood 2008;113:2495-4550. Kaylee MULTANI, Mil P, Leisa P, et al. Establishment of the first World Health Organization International Genetic Reference Panel for quantification of BCR-ABL mRNA. Blood 2010;116:b275-708. [employer] BCR-ABL V2 Package Insert [id number], Rev B (May 2016). Xpert BCR-ABL Monitor, [id number], Rev A, November 2010. This test was performed at: [facility], [facility]#[id number], Estelle Slade, Ph.D., [place], [address], [place] Current interpretive data was last revised 2023. Blood 04/18/2025 11:0 3 AM CDT 04/18/2025 12:38 PM CDT Narrative [facility] - 04/19/2025 11:20 AM CDT Lab to be drawn monthly, his TKI has been stopped us Lali Watt MEDIA/INSTRUCTIONAL DESIGNER LAB GENETIC TESTING F inal Result [facility] Department [place] [address] [facility] * Differential, auto (04/18/2025 11:03 AM CDT) Neutrophil abs 4.36 1.50 - 6.50 K/cumm Comment:Testing performed by : [facility], [address] [place] [phone] Lymphocyte abs 1.85 0.80 - 3.30 [facility] Comment:Testing performed by : [facility], [address] [place] [phone] Monocyte abs 0.69 0.20 - 0.80 K/cumm AUDI [facility] Comment:Testing performed by : [facility], [address] [place] [phone] Eosinophil abs 0.17 0.00 - 0.50 K/cumm [facility] Comment:Testing performed by : [facility], [address] [place] [phone] Basophil abs 0.06 0.00 - 0.10 K/cumm [facility] Comment:Testing performed by : [facility], [address] [place] [phone] Neutrophil pct 61.2 % CERNER [facility] Comment: Interpretive Data Percent cell count reference ranges are not reported, since discordance with absolute values may lead to misinterpretation of CBC data. Current Interpretive Data was last revised on 2017. Testing performed by: [facility], [address] [place] [phone] Lymphocyte pct 26.0 % CERNER [facility] Comment: Interpretive Data Percent cell count reference ranges are not reported, since discordance with absolute values may lead to misinterpretation of CBC data. Current Interpretive Data was last revised on 2017. Testing performed by: [facility], [address] [place] [phone] Monocyte pct 9.7 % CERNER [facility] Comment: Interpretive Data Percent cell count reference ranges are not reported, since discordance with absolute values may lead to misinterpretation of CBC data. Current Interpretive Data was last revised on 2017. Testing performed by: [facility], [address] [place] [phone] Eosinophil pct 2.3 % CERNER [facility] Comment: Interpretive Data Percent cell count reference ranges are not reported, since discordance with absolute values may lead to misinterpretation of CBC data. Current Interpretive Data was last revised on 2017. Testing performed by: [facility], [address] [place] [phone] Basophil pct 0.9 % [facility] Comment: Interpretive Data Percent cell count reference ranges are not reported, since discordance with absolute values may lead to misinterpretation of CBC data. Current Interpretive Data was last revised on 2017. Testing performed by: [facility], [address] [place] [address] Blood 04/18/2025 11:0 3 AM CDT 04/18/2025 11:21 AM CDT Ezequiel Baugh MD LAB BLOOD ORDERABLES Final Re sult AUDI THOMAS [facility] Department [place] [address] * CBC with auto differential (04/18/2025 11:03 AM CDT) WBC 7.13 3.80 - 9.90 K/cumm Comment:Testing performed by : [facility], [address] [place] [address] Hgb 15.6 13.0 - 17.5 g/dL AUDI THOMAS Comment:Testing performed by : [facility], [address] [place] [address] Hct 45.8 38.9 - 50.3 % CERJAVIER THOMAS Comment:Testing performed by : [facility], [address] [place] [address] Plt 164 150 - 400 K/cumm AUDI THOMAS Comment:Testing performed by : [facility], [address] [place] [address] MPV 8.6 6.8 - 10.4 fL AUDI BJ Comment:Testing performed by : [facility], [address] [place] [address] RBC 5.45 4.30 - 5.80 M/cumm AUDI [facility]J Comment:Testing performed by : [facility], [address] [place] [address] MCV 84.1 81.3 - 96.4 fL CERJAVIER THOMAS Comment:Testing performed by : [facility], [address] [place] [address] MCH 28.6 27.1 - 33.3 pg CERJAVIER THOMAS Comment:Testing performed by : [facility], [address] [place] [address] MCHC 34.1 32.3 - 35.7 g/dL AUDI THOMAS Comment:Testing performed by : [facility], [address] [place] [address] RDW CV 13.6 11.1 - 14.9 % AUDI THOMAS Comment:Testing performed by : [facility], [address] [place] [address] NRBC abs 0.00 0.00 - 0.01 K/cumm AUDI THOMAS Comment:Testing performed by : [facility], [address] [place] [address] Blood 04/18/2025 11:0 3 AM CDT 04/18/2025 11:21 AM CDT Narrative AUDI THOMAS - 04/18/2025 11:24 AM CDT 03/13 and 04/17 us Ezequiel Baugh MD LAB BLOOD ORDERABLES Final Re sult AUDI [facility] Department [place] [address] * Differential, auto (03/13/2025 9:56 AM CDT) Neutrophil abs 4.62 1.50 - 6.50 K/cumm Comment:Testing performed by : [facility], [address] [place], [place] [phone] Lymphocyte abs 2.02 0.80 - 3.30 K/cumm UADI THOMAS Comment:Testing performed by : [facility], [address] [place] [address] Monocyte abs 0.65 0.20 - 0.80 K/cumm AUDI THOMAS Comment:Testing performed by : [facility], [address] [place] [address] Eosinophil abs 0.16 0.00 - 0.50 K/cumm AUDI THOMAS Comment:Testing performed by : [facility], [address] [place] [phone] Basophil abs 0.09 0.00 - 0.10 K/cumm [facility] Comment:Testing performed by : [facility], [address] [place] [phone] Neutrophil pct 61.3 % [facility] Comment: Interpretive Data Percent cell count reference ranges are not reported, since discordance with absolute values may lead to misinterpretation of CBC data. Current Interpretive Data was last revised on 2017. Testing performed by: [facility], [address] [place] [phone] Lymphocyte pct 26.8 % CERNER [facility]J Comment: Interpretive Data Percent cell count reference ranges are not reported, since discordance with absolute values may lead to misinterpretation of CBC data. Current Interpretive Data was last revised on 2017. Testing performed by: [facility], [address] [place] [phone] Monocyte pct 8.6 % [facility] Comment: Interpretive Data Percent cell count reference ranges are not reported, since discordance with absolute values may lead to misinterpretation of CBC data. Current Interpretive Data was last revised on 2017. Testing performed by: [facility], [address] [place] [phone] Eosinophil pct 2.2 % [facility] Comment: Interpretive Data Percent cell count reference ranges are not reported, since discordance with absolute values may lead to misinterpretation of CBC data. Current Interpretive Data was last revised on 2017. Testing performed by: [facility], [address] [place] [phone] Basophil pct 1.1 % [facility] Comment: Interpretive Data Percent cell count reference ranges are not reported, since discordance with absolute values may lead to misinterpretation of CBC data. Current Interpretive Data was last revised on 2017. Testing performed by: [facility], [address] [place] [phone] Blood 03/13/2025 9:56 AM CDT 03/13/2025 10:03 AM CDT us Ezequiel Baugh MD LAB BLOOD ORDERABLES Final Re sult AUDI THOMAS [facility] Department [place] [address] * CBC with auto differential (03/13/2025 9:56 AM CDT) WBC 7.53 3.80 - 9.90 K/cumm Comment:Testing performed by : [facility], [address] [place] [address] Hgb 16.1 13.0 - 17.5 g/dL AUDI THOMAS Comment:Testing performed by : [facility], [address] [place] [address] Hct 47.1 38.9 - 50.3 % AUDI THOMAS Comment:Testing performed by : [facility], [address] [place] [address] Plt 156 150 - 400 K/cumm AUDI THOMAS Comment:Testing performed by : [facility], [address] [place] [address] MPV 8.4 6.8 - 10.4 fL AUDI THOMAS Comment:Testing performed by : [facility], [address] [place] [address] RBC 5.59 4.30 - 5.80 M/cumm AUDI THOMAS Comment:Testing performed by : [facility], [address] [place] [address] MCV 84.4 81.3 - 96.4 fL CERJAVIER BJ Comment:Testing performed by : [facility], [address] [place] [address] MCH 28.8 27.1 - 33.3 pg CERJAVIER THOMAS Comment:Testing performed by : [facility], [address] [place] [address] MCHC 34.2 32.3 - 35.7 g/dL CERJAVIER THOMAS Comment:Testing performed by : [facility], [address] [place] [phone] RDW CV 13.6 11.1 - 14.9 % [facility] Comment:Testing performed by : [facility], [address] [place] [phone] NRBC abs 0.00 0.00 - 0.01 K/cumm [facility] Comment:Testing performed by : [facility], [address] [place] [phone] Blood 03/13/2025 9:56 AM CDT 03/13/2025 10:03 AM CDT Narrative [facility] - 03/13/2025 10:08 AM CDT 03/13 and 04/17 us Ezequiel Baugh MD LAB BLOOD ORDERABLES Final Re sult [facility] Department [place] [address] * (ABNORMAL) BCR::ABL1 PCR quantitative p210 (03/13/2025 9:56 AM CDT) BCR/ABL p210 Positive, below Lower Level of Quantification(A) [facility] BCR/ABL p210 % (IS) <0.0032% [facility] BCR/ABL p210 Interpretation Positive: BCR::ABL1 major (p210) transcripts were detected below the lower level of quantification (LLOQ). [facility] BCR/ABL p210 Specimen Blood [facility] BCR/ABL p210 Result Review Final report reviewed by: KECIA Johnston, MB(ASCP), Regional Controller, on 03/14/2025 09:02:48 CDT. [facility] Comment: Interpretive Data A summary of previous BCR::ABL1 major quantitative RT-PCR results for this patient performed in the [facility]ostics Lab may be found as a cumulative laboratory report in the Results Review section of the Medical Record. Method: The quantitative BCR::ABL1 assay is performed on the GeneXDot VN ([employer]) platform. RNA is extracted, converted to cDNA, and BCR::ABL1 and ABL1 cDNA targets are quantified by real-time PCR amplification. Results are reported as the percentage ratio of BCR::ABL1 fusion transcripts to ABL1 transcripts (BCR::ABL1/ABL1) on the International Scale (Kaylee MULTANI, 2010). A BCR::ABL1 value of 0.1% on the International Scale represents a major molecular response in CML (Debra Mark, 2008). The analytical sensitivity of this assay is 0.0032% BCR::ABL1/ABL1. Due to assay non-linearity for the BCR::ABL1 p210 isoform at very high and low concentrations, results greater than 10% (above upper limit of quantification or ULOQ) will be reported as > 10% and results detected at less than 0.0032% (below lower limit of quantification or LLOQ) will be reported as < 0.0032% . Limitations: This test only detects the e13a2 and e14a2 BCR::ABL1 major isoforms. A negative result does not exclude the presence of the e1a2 (p190) BCR::ABL1 minor isoforms. False positive or negative results may occur with unusual BCR::ABL1 isoforms. FDA Comment: This test was developed and its performance characteristics determined by this [facility]. Peripheral blood testing has been cleared by the U.S. Food and Drug Administration (FDA). Alternative specimen types, including extracted RNA or bone marrow aspirates have not been cleared or approved by the U.S. Food and Drug Administration. FDA does not require those modifications to go through premarket FDA review. This test is used for clinical purposes. It should not be regarded as investigational or for research. This laboratory is certified under the Clinical Laboratory Improvement Amendments (CLIA) as qualified to perform high complexity clinical laboratory testing. Literature References: Debra S, Edwardo L, Yony N, et al. Desirable performance characteristics for BCR-ABL measurement on an international reporting scale to allow consistent interpretation of individual patient response and comparison of response rate between clinical trials. Blood 2008;113:8447-8162. Kaylee MULTANI, Mil P, Leisa P, et al. Establishment of the first World Health Organization International Genetic Reference Panel for quantification of BCR-ABL mRNA. Blood 2010;116:m039-559. [employer] BCR-ABL V2 Package Insert [id number], Rev B (May 2016). Xpert BCR-ABL Monitor, [id number], Rev A, November 2010. This test was performed at: [facility], [facility], CLIA#[id number], Estelle Slade, Ph.D., [place], [address], [place] Current interpretive data was last revised 2023. Blood 03/13/2025 9:56 AM CDT 03/13/2025 11:49 AM CDT Narrative AUDI [facility] - 03/14/2025 9:02 AM CDT Lab to be drawn monthly, his TKI has been stopped us Lali Watt NP LAB GENETIC TESTING F inal Result AUDI [facility] Department [place] [address] [facility] from Last 3 Months Insurance [employer] ACCESS CHOICE [employer] ACCESS CHOICE [facility] ACC[facility] CHOICE Care Teams Log Haul Chain Feeder Relationship Specialty Start Date End Date Maday Hagan PA [address] [place] [address] [phone] PCP - General Physician Soda Tester 04/29/23 Ezequiel Baugh MD [address] [facility] [address] [place] [address] Medical Oncologist/Hematologis t Medical Oncology 01/26/18 Micheal Aleman MD [address] [address] Referring Physician Endocrinology Diabetes & Metabolism 01/26/18 Lali Watt NP [address] [facility] [address] [address] [address] Nurse Practitioner Medical Oncology 08/27/20 Dino Oleary OD [address] [place] [address] Referring Physician Optometry 02/01/22 Pete Coffman MD PhD [address] [place] [address] Referring Physician Neurology 09/14/23
--- OUTSIDE RECORDS SUMMARY | 2025-05-19 11:37 | XMS_ITS | Clinical Summary ---
Author Organization [facility] Address [address] [place] [address] Care Team Providers Care Relief Pharmacist Name Role Phone Maday Hagan Primary Care Provider [phone] Allergies No known active allergies Medications finasteride [...] needed for Nausea. 20 tablet 4 Active Active Problems Problem Noted Date Diagnosed Date Tear of right rotator cuff 02/01/2025 Immunizations Immunization Administration Dates Next Due MODERNA COVID-19 (12+) [...] and Td Vaccines (1 - Tdap) 1981 Pneumococcal Vaccine: 50+ Years (1 of 1 - PCV) 2012 Zoster Vaccines (1 of 2) 2012 COVID-19 Vaccine (6 - 2024- season) 2025 09/18/2023, 04/13/2023, 03/22/2021, Additional history exists Influenza Adult (#1) 2025 04/19/2021, 03/17/2020, 04/02/2019, Additional history exists Hepatitis C Completed 11/12/2017 RSV Immunization or 60+ Years Completed 09/18/2023 Hepatitis A Vaccines Aged Out No long er eligible based on patient's age to complete this topic Meningococcal B Vaccine Aged Out No l [...] VE NON-REACTI VE 11/12/2017 9:04 PM CDT [facility] SERUM OR PLASMA SPECIMEN / Unknown 11/12/2017 9:15 AM CDT 11/12/2017 12:05 PM CDT us Generic Conversion Md [facility] Final R esult [facility] [address] [place] [address], from Last 3 Months or Most Recently Relevant to Health Maintenance Additional Health Concerns Infection Onset Date Last Indicated 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
--- OUTSIDE RECORDS SUMMARY | 2025-05-19 11:37 | XMS_ITS ---
Author Organization [facility] Address [address], [facility] [address] [place] [address] Phone Care Team Providers Care Instructor Pilot Name Role Phone Alfonzo Lee MD Primary Care Provider Active Problems Patient Care Coordination No te [...]
--- OUTSIDE RECORDS SUMMARY | 2025-05-19 11:37 | XMS_ITS | Clinical Summary ---
Author Organization [facility] Address [address], [facility] [address] [place] [address] Phone Care Team Providers Care Housecalls Nurse Name Role Phone Alfonzo Lee MD Primary Care Provider [phone] Allergies No known active allergies Medications levothyroxine [...] different from the original. [facility] Problem Noted Date Diagnosed Date [...] 1981 Zoster Immunization (1 of 2) 1981 Cologuard 12/26/2007 Colonoscopy 12/26/2007 Colorectal Cancer Screening 12/26/2007 Immunochemical Fecal Occult Blood 12/26/2007 Influenza Immunization (#1) 2025 04/11/2015 Respiratory Syncytial Virus (RSV) Immunization (Adult) (1 - 1-dose 75+ series) 2037 Hepatitis B Immunization Aged Out No longer eligible based on patient's age to complete this topic Human Papillomavirus (HPV) Immunization Aged Out No longer eligible b ased on patient's age to complete this topic Meningococcal Immunization (ACWY) Aged Out No longer eligible based on patient's age to complete this topic Rotavirus Immunization Aged Out No lo nger eligible based on patient's age to complete this topic Insurance [facility] Care Teams Housecalls Nurse Relationship Specialty Start Date End Date Alfonzo Lee MD [address] [place] [id number] PCP - General Internal Medicine 11/05/17
== END 2025-05-19 11:25 | disposition home or self-care (01) ==
LOC: ANHIMG 11:26
PROVIDERS: PCP Physician Assistant Medical; Visit Provider Physician Assistant
DX: N20.0 Calculus of kidney (principal)
CPT/HCPCS: 74018